=== PATIENT | male | born 1975 | race African-American/Black ===

== ENCOUNTER 2016-03-13 13:06 | Emergency (ER) | payer OTHER ==
[2016-03-13 13:18] VITALS: BP 113/78
[2016-03-13] MEDS ORDERED: Albuterol/Ipratropium NEB.SOL* Albuterol 2.5 MG/Ipratropium 0.5 MG 3 ML INH ONE (13:43)
--- NOTE | 2016-03-13 14:44 | RAD ---
INDICATION: Sarcoidosis, cough. COMPARISON: There are no prior studies available for comparison. TECHNIQUE: Dual-energy PA and lateral views of the chest were obtained. FINDINGS: Cardiac and mediastinal contours appear within normal limits. The lungs are slightly underinflated. There is diffuse prominence of the interstitial markings. No focal infiltrate or pleural effusion is seen. IMPRESSION: THERE IS DIFFUSE PROMINENCE OF THE INTERSTITIAL MARKINGS WHICH IS A NONSPECIFIC FINDING ALTHOUGH WOULD BE MOST CONSISTENT WITH CHRONIC INTERSTITIAL LUNG DISEASE AND THE PATIENT'S HISTORY OF SARCOIDOSIS.
--- NOTE | 2016-03-13 14:53 | UC ---
Martina Melo Matthew, [facility] on 03/13/16 at 1358 . Respiratory Complaint HPI - HPI Summary HPI Summary: Nurses Note; Hx of sarcoidosis, hasn't been taking meds X 3 weeks. Worsening SOB , worse with exertion. Had cold symptoms last week. Does not have local yet, just moved to area from [facility]. MD Note; 40 y/o male. Hx of sarcoidosis with worsening SOB. Vital signs stable, afebrile, pulse oxygen 94%, light every day smoker. The patient is from out of town. In Room Note; A 40 y/o male presents to the ED with SOB since 2 weeks ago. Associated symptoms include wheezing and intermittent productive cough. The patient denies nausea, vomiting, and diarrhea. The patients SOB worsens with exertion. He has been out of medication for sarcoid for the past 3 weeks, because the patient has been travelling and is relocating to [place]. He does not have a PCP in [place] yet. He has been on these medications since 2012. He normally uses his inhaler daily as well as prednisone. No PMHx of asthma. The patient was ill last week, which made his symptoms worse. He is currently visiting from out of town. FHx of sarcoid. - History of Current Complaint Chief Complaint: UCRespiratory Stated Complaint: RESP COMPLAINT Hx Obtained From: Patient Onset/Duration: Lasting Weeks, Still Present Timing: Constant Severity Initially: Moderate Severity Currently: Moderate Character: Cough: Productive - intermittently Aggravating Factors: Exertion Associated Signs And Symptoms: Positive: Wheezing. Negative: Fever - Allergies/Home Medications Allergies/Adverse Reactions: Allergies Allergy/AdvReac Type Severity Reaction Status Date / Time No Known Allergies Allergy Verified 03/13/16 13:18 Home Medications: Home Medications Albuterol HFA INHALER* [Ventolin HFA Inhaler*] 2 puff INH PRN 03/13/16 [History] Budesonide/Formote 160/4.5(NF) [Symbicort 160/4.5 (NF)] 2 puff INH DAILY [History Confirmed 03/13/16] FLUoxetine CAP* [Prozac CAP*] 30 mg PO DAILY 03/13/16 [History Confirmed ] Lisinopril/HCTZ 1012.5(NF) [Zestoretic 11/20.5(NF)] 1 tab PO DAILY 03/13/16 [ History Confirmed 03/13/16] Omeprazole CAP* [Prilosec CAP* 20 MG] 1 tab PO DAILY 03/13/16 [History Confirmed 03/13/16] QUEtiapine TAB* [Seroquel TAB*] 200 mg PO DAILY 03/13/16 [History Confirmed 03/28] busPIRone TAB* [Buspar TAB*] 1 tab PO BID 03/13/16 [History Confirmed 03/13/16] metFORMIN* [Glucophage*] 1 tab PO BID 03/13/16 [History Confirmed 03/13/16] predniSONE TAB* [Deltasone TAB*] 30 mg PO DAILY 03/13/16 [History Confirmed 03/28] PMH/Surg Hx/FS Hx/Imm Hx - Additional Past Medical History Additional PMH: PMHx: pulmonary sarcoidosis Endocrine History Of: Reports: Diabetes - Pre-Diabetic - Surgical History Surgical History: Yes - Family History Known Family History: Negative: Cardiac Disease, Diabetes Family History: FHx of sarcoidosis - mother - Social History Alcohol Use: None Substance Use Type: None Smoking Status (MU): Light Every Day Tobacco Smoker - Immunization History Most Recent Influenza Vaccination: Review of Systems Constitutional: Negative Skin: Negative Eyes: Negative ENT: Negative Respiratory: Shortness Of Breath, Cough - productive, Other - Wheezing Cardiovascular: Negative Gastrointestinal: Negative Genitourinary: Negative Motor: Negative Neurovascular: Negative Musculoskeletal: Negative Neurological: Negative Psychological: Negative All Other Systems Reviewed And Are Negative: Yes Physical Exam Triage Information Reviewed: Yes Appearance: Well-Appearing, No Pain Distress, Well-Nourished Vital Signs: Initial Vital Signs Temp 97.6 F 03/13/16 13:10 Pulse 88 03/13/16 13:10 Resp 24 03/13/16 13:10 BP 113/78 03/13/16 13:10 Pulse Ox 94 03/13/16 13:10 Vital Signs Reviewed: Yes Eyes: Positive: Conjunctiva Clear ENT: Positive: Hearing grossly normal, Pharynx normal, TMs normal. Negative: Muffled/hoarse voice Neck: Positive: Supple, No Lymphadenopathy Respiratory: Positive: Chest non-tender, Lungs clear, No respiratory distress, Other: - Lungs are quiet on inhalation. Negative: Crackles, Rhonchi, Wheezing Cardiovascular: Positive: RRR, No Murmur Abdomen Description: Positive: Nontender, No Organomegaly Bowel Sounds: Positive: Present Musculoskeletal: Positive: Strength Intact, ROM Intact Neurological: Positive: Muscle Tone Normal Psychological: Positive: Age Appropriate Behavior UC Diagnostic Evaluation - Laboratory O2 Sat by Pulse Oximetry: 94 Re-Evaluation - Re-Evaluation First Eval Re-Evaluation Time: 14:32 Change: Improved Comment: S/P nebulization pulse oxygen was 96% Second Eval Re-Evaluation Time: 14:43 Change: Improved Comment: He feels more comfortable. He has greater airflow and easy of respirations. I ordered a spacer for the patient to accompany his albuterol. Respiratory Course/Dx - Course Course Of Treatment: The patient has a Hx of pulmonary sarcoidosis and has a recent cough and SOB. No complaints of chest pain hemoptysis. Hes from out of town and has run out of medication and there are no baseline testing including XR for this patient. Hes scheduled to see his new PCP in one month. He requires renewal of his medications, which I will give him, and I will also obtain a chest XR as baseline. - Differential Dx/Diagnosis Differential Diagnosis/HQI/PQRI: Other - Pneumonia vs sarcoid Provider Diagnoses: Pulmonary sarcoid with SOB - Physician Notification/Consults Discussed Patient Care With: [facility] - requested that metformin total number be increased to 120 and buspar to 80 Discharge - Discharge Plan Condition: Stable Disposition: HOME Prescriptions: Albuterol HFA INHALER* [Ventolin HFA Inhaler*] 1 - 2 puff INH Q4H PRN #1 mdi PRN Reason: Shortness Of Breath Budesonide/Formote 160/4.5(NF) [Symbicort 160/4.5 (NF)] 2 puff INH DAILY #1 mdi MDD 2 puffs a day FLUoxetine CAP* [Prozac CAP*] 10 mg PO DAILY #40 cap MDD 1 FLUoxetine CAP* [Prozac CAP*] 20 mg PO DAILY #40 cap MDD 1 DAILY Lisinopril/HCTZ 10.5(NF) [Zestoretic 10.5(NF)] 1 tab PO DAILY #60 tab MDD 1 Metformin HCl [Glucophage] 500 mg PO BID #60 tab MDD 2 PER DAY Omeprazole CAP* [Prilosec CAP* 20 MG] 20 mg PO DAILY #60 cap. MDD ONE A DAY Spacer/Aerosol-Holding Chamber [Aerochamber Mv] 1 mis XX Q6HR #1 mis busPIRone TAB* [Buspar TAB*] 15 mg PO BID #40 tab MDD TWICE A DAY predniSONE TAB* [Deltasone TAB*] 30 mg PO DAILY #60 tab Patient Education Materials: Sarcoidosis (ED) Referrals: No Primary Care Phys,NOPCP [Primary Care Provider] - Additional Instructions: WE DISCUSSED: Your respiratory condition is related to your sarcoidosis. 1. I have renewed your prescriptions until you see your doctor next month. I have a chest x ray as baseline for your new physician. 2. GO TO ED FOR CONTINUING OR INCREASING SHORTNESS OF BREATH. 3. BEGIN inhalers TODAY. 4.I will be here in 2 days if you need to talk about any questions or concerns. Diagnostics - Vital Signs Vital Signs Temp Pulse Resp BP Pulse Ox 03/13/16 14:33 96 03/13/16 13:10 97.6 F 88 24 113/78 94 - Laboratory Lab Statement: Any lab studies that have been ordered have been reviewed, and results considered in the medical decision making process. - Radiology CXR Xray Interpretation: Positive (See Comments) - THERE IS DIFFUSE PROMINENCE OF THE INTERSTITIAL MARKINGS WHICH IS A NONSPECIFIC FINDING ALTHOUGH WOULD BE MOST CONSISTENT WITH CHRONIC INTERSTITIAL LUNG DISEASE AND THE PATIENT'S HISTORY OF SARCOIDOSIS. Radiology Interpretation Completed By: Radiologist The documentation as recorded by the Martina valdovinos Matthew accurately reflects the service I personally performed and the decisions made by me, Mervin Morelos MD.
== END 2016-03-13 15:08 | disposition home or self-care (01) ==
LOC: UCEAST 13:06
DX: D86.0 Sarcoidosis of lung (principal); R06.02 Shortness of breath; F17.210 Nicotine dependence, cigarettes, uncomplicated
CPT/HCPCS: 71020; 99202; A9270-GY; G0463

== ENCOUNTER 2016-11-06 16:58 | Emergency (ER) | payer MEDICAID ==
--- NOTE | 2016-11-06 17:10 | UC ---
Respiratory Complaint HPI - HPI Summary HPI Summary: 40 YEAR OLD MALE WITH A HISTORY OF SARCOIDOSIS PRESENTS FOR A BREATHING TREATMENT. - History of Current Complaint Stated Complaint: SOB Time Seen by Provider: 11/06/16 17:08 Hx Obtained From: Patient Onset/Duration: Sudden Onset Severity Initially: Moderate Severity Currently: Moderate Pain Scale Used: 0-10 Numeric - 0 Character: Cough: Nonproductive - Allergies/Home Medications Allergies/Adverse Reactions: Allergies Allergy/AdvReac Type Severity Reaction Status Date / Time No Known Allergies Allergy Verified 11/06/16 17:16 PMH/Surg Hx/FS Hx/Imm Hx Previously Healthy: Yes - Surgical History Surgical History: Yes - Family History Known Family History: Negative: Cardiac Disease, Diabetes Family History: FHx of sarcoidosis - mother - Social History Alcohol Use: None Substance Use Type: None Smoking Status (MU): Light Every Day Tobacco Smoker - Immunization History Most Recent Influenza Vaccination: 2014/2015 Review of Systems Constitutional: Negative Skin: Negative Eyes: Negative ENT: Negative Respiratory: Shortness Of Breath, Cough Cardiovascular: Negative Gastrointestinal: Negative Genitourinary: Negative Motor: Negative Neurovascular: Negative Musculoskeletal: Negative Neurological: Negative Psychological: Negative All Other Systems Reviewed And Are Negative: Yes Physical Exam Triage Information Reviewed: Yes Vital Signs Reviewed: Yes Eye Exam: Normal ENT Exam: Normal Dental Exam: Normal Neck exam: Normal Neck: Positive: 1 Respiratory: Positive: No respiratory distress, Wheezing Cardiovascular Exam: Normal Abdominal Exam: Normal Musculoskeletal Exam: Normal Neurological Exam: Normal Psychological Exam: Normal Skin Exam: Normal Respiratory Course/Dx - Differential Dx/Diagnosis Provider Diagnoses: WHEZZING. SOB Discharge - Discharge Plan Condition: Stable Disposition: HOME Patient Education Materials: Sarcoidosis (ED) Referrals: Curtis Murrieta DO [Primary Care Provider] -
[2016-11-06] MEDS ORDERED: predniSONE TAB* 10 MG PO ONE (17:11)
[2016-11-06] MEDS ORDERED: Albuterol 2.5 MG/3 ML NEB.SOL* (0.083%) INH ONE (17:11)
[2016-11-06 17:16] VITALS: BP 144/86
== END 2016-11-06 17:39 | disposition home or self-care (01) ==
LOC: UCEAST 16:58
DX: R06.02 Shortness of breath (principal); R06.2 Wheezing; F17.210 Nicotine dependence, cigarettes, uncomplicated; Z87.09 Personal history of other diseases of the respiratory system
CPT/HCPCS: 93005; 99212; G0463; J7512

== ENCOUNTER 2017-10-05 10:25 | Emergency (ER) | payer MEDICAID ==
[2017-10-05 10:42] VITALS: BP 113/73
[2017-10-05] MEDS ORDERED: Ibuprofen TAB* 400 MG PO ONE (11:01)
--- NOTE | 2017-10-05 11:02 | UC ---
Throat Pain/Nasal Mani HPI - HPI Summary HPI Summary: 41 y/o male presents to the urgent care c/o sore throat since yesterday. Pain w / swallowing is 8/10 specially w/ eating or drinking. Pt has taking Bendaryl to alleviate symptoms. Pt denies cough, nasal congestion, URI symptoms, SOB, chest pain, abdominal pain, N/V/D. - History of Current Complaint Chief Complaint: UCGeneralIllness Stated Complaint: SORE THROAT Time Seen by Provider: 10/05/17 10:53 Hx Obtained From: Patient Onset/Duration: Gradual Onset, Lasting Days - 1 day, Still Present, Worse Since - today Severity: Moderate Pain Intensity: 8 Pain Scale Used: 0-10 Numeric Cough: None Associated Signs & Symptoms: Positive: Dysphagia. Negative: Wheezing, Sinus Discomfort, Nasal Discharge, Fever - Epiglottits Risk Factors Epiglottis Risk Factors: Negative - Allergies/Home Medications Allergies/Adverse Reactions: Allergies Allergy/AdvReac Type Severity Reaction Status Date / Time No Known Allergies Allergy Verified 10/05/17 10:35 Home Medications: Home Medications Budesonide/Formote 160/4.5(NF) [Symbicort 160/4.5 (NF)] 2 puff INH BID MDD 2 puffs a day 10/05/17 [History Confirmed 10/05/17] Omeprazole CAP* [Prilosec CAP* 20 MG] 40 mg PO DAILY MDD ONE A DAY 10/05/17 [ History Confirmed 10/05/17] PMH/Surg Hx/FS Hx/Imm Hx Previously Healthy: Yes Endocrine History: Diabetes - PRE-DM type II Cardiovascular History: Hypertension Other Respiratory History: Sarcoidosis GI/ History: Gastroesophageal Reflux - Surgical History Surgical History: None - Family History Known Family History: Positive: Cardiac Disease - CHF Negative: Diabetes Family History: FHx of sarcoidosis - mother - Social History Occupation: Unemployed Lives: With Family Alcohol Use: None Substance Use Type: None Smoking Status (MU): Current Every Day Smoker Type: Cigarettes Amount Used/How Often: 1/2 ppd Length of Time of Smoking/Using Tobacco: since age 14 Have You Smoked in the Last Year: Yes - Immunization History Most Recent Influenza Vaccination: 2014/2015 Review of Systems Constitutional: Negative Skin: Negative Eyes: Negative ENT: Sore Throat Respiratory: Negative Cardiovascular: Negative Gastrointestinal: Negative Genitourinary: Negative Motor: Negative Neurovascular: Negative Musculoskeletal: Negative Neurological: Negative Psychological: Negative Is Patient Immunocompromised?: No All Other Systems Reviewed And Are Negative: Yes Physical Exam - Summary Physical Exam Summary: VITAL SIGNS: Reviewed. GENERAL: Patient is a well developed and nourished male who is sitting comfortable in the examining table. Patient is not in any acute respiratory distress. HEAD AND FACE: No signs of trauma. No ecchymosis, hematomas or skull depressions. No sinus tenderness. EYES: PERRLA, EOMI x 2, No injected conjunctiva, no nystagmus. No photophobia. EARS: Hearing grossly intact. Ear canals and tympanic membranes are within normal limits. MOUTH: Positive pharynx with erythema, no exudates, no palatal petechiae. B/L tonsillar enlargement with no exudate. Uvula in midline. NECK: Supple, trachea is midline, Positive anterior cervical lymphadenopathy, no JVD, no carotid bruit, no c-spine tenderness, neck with full ROM. No meningeal signs, no Kernig's or brudzinskis signs. CHEST: Symmetric, no tenderness at palpation LUNGS: Clear to auscultation bilaterally. No wheezing or crackles. CVS: Regular rate and rhythm, S1 and S2 present, no murmurs or gallops appreciated. ABDOMEN: Soft, non-tender. No signs of distention. No rebound no guarding, and no masses palpated. Bowel sounds are normal. EXTREMITIES: FROM in all major joints, no edema, no cyanosis or clubbing. NEURO: Alert and oriented x 3. No acute neurological deficits. Speech is normal and follows commands. SKIN: Dry and warm Triage Information Reviewed: Yes Vital Signs: Initial Vital Signs Temp 98.2 F 10/05/17 10:35 Pulse 88 10/05/17 10:35 Resp 16 10/05/17 10:35 BP 113/73 10/05/17 10:35 Pulse Ox 94 10/05/17 10:35 Throat Pain/Nasal Course/Dx - Course Course Of Treatment: 41 y/o male presents to the urgent care c/o sore throat since yesterday. Pain w/ swallowing is 8/10 specially w/ eating or drinking. Pt has taking Bendaryl to alleviate symptoms. Pt denies cough, nasal congestion, URI symptoms, SOB, chest pain, abdominal pain, N/V/D. Hx obtained. Pt w/ pharyngitis on examination. Rapid strep ordered, result: negative. Viral pharyngitis.Pt Rx ibuprofen PO to alleviates symptoms of pain and swelling. Advised on hand washing to avoid spreading. Pt advised to rest, eat well and avoid strenuous exercise. If symptoms do not improve or worsen advised to return to the urgent care or f/u with his PCP in 3 days for further evaluation and treatment. Pt understood and agreed - Differential Dx/Diagnosis Differential Diagnosis/HQI/PQRI: Influenza, Laryngitis, Mononucleosis, Pharyngitis, Tonsillitis, URI Provider Diagnoses: 1- Viral pharyngitis Discharge - Sign-Out/Discharge Documenting (check all that apply): Patient Departure All imaging exams completed and their final reports reviewed: No Studies - Discharge Plan Condition: Stable Disposition: HOME Patient Education Materials: Pharyngitis (ED) Referrals: Curtis Murrieta DO [Primary Care Provider] - 3 Days Additional Instructions: 1-Please continue taking ibuprofen PO q6-8hrs prn as instructed after meals to alleviate pain and swelling. Increase fluid intake, eat well, rest and avoid strenuous exercise 2-If symptoms do not improve or worsen please return to the urgent care or f/u with your PCP 3 days for further evaluation and treatment. - Billing Disposition and Condition Condition: STABLE Disposition: Home
== END 2017-10-05 11:35 | disposition home or self-care (01) ==
LOC: UCEAST 10:25
DX: J02.8 Acute pharyngitis due to other specified organisms (principal); B97.89 Other viral agents as the cause of diseases classified elsewhere; K21.9 Gastro-esophageal reflux disease without esophagitis; I10 Essential (primary) hypertension; Z79.899 Other long term (current) drug therapy; F17.210 Nicotine dependence, cigarettes, uncomplicated
CPT/HCPCS: 87651; 99212; A9270-GY; G0463

== ENCOUNTER 2018-02-04 10:56 | Emergency (ER) | payer MEDICAID ==
[2018-02-04 11:03] VITALS: BP 122/74
--- NOTE | 2018-02-04 11:12 | UC ---
Skin Complaint HPI - HPI Summary HPI Summary: 42 yo black male presents with upper lip swelling since last night. He said that last night he noticed mild swelling to his upper lip and took a benadryl. This morning upon waking he noticed it was significantly more swollen. He is not having any difficulty breathing, throat swelling, or other facial swelling. Denies recent illness or new foods/drinks/meds. He does take a daily lisinopril/ HCTZ and has for many years. - History of Current Complaint Chief Complaint: UCAllergicReaction Time Seen by Provider: 02/04/18 11:12 Stated Complaint: LIP SWELLING Hx Obtained From: Patient Onset/Duration: Sudden Onset Onset Severity: Mild Current Severity: Mild Pain Intensity: 3 Pain Scale Used: 0-10 Numeric - Allergy/Home Medications Allergies/Adverse Reactions: Allergies Allergy/AdvReac Type Severity Reaction Status Date / Time No Known Allergies Allergy Verified 02/04/18 11:03 PMH/Surg Hx/FS Hx/Imm Hx - Additional Past Medical History Additional PMH: Sarcoidosis Endocrine History: Diabetes Cardiovascular History: Hypertension Respiratory History: COPD, Asthma GI/ History: Gastroesophageal Reflux - Surgical History Surgical History: None - Family History Known Family History: Positive: Cardiac Disease - CHF Negative: Diabetes Family History: FHx of sarcoidosis - mother - Social History Lives: With Family Alcohol Use: None Substance Use Type: None Smoking Status (MU): Current Every Day Smoker Type: Cigarettes Amount Used/How Often: 1/2 ppd Length of Time of Smoking/Using Tobacco: since age 14 Have You Smoked in the Last Year: Yes - Immunization History Most Recent Influenza Vaccination: 2014/2015 Review of Systems All Other Systems Reviewed And Are Negative: Yes Constitutional: Positive: Negative Skin: Positive: Other - Upper lip edema Eyes: Positive: Negative ENT: Positive: Negative Respiratory: Positive: Negative Cardiovascular: Positive: Negative Gastrointestinal: Positive: Negative Neurovascular: Positive: Negative Neurological: Positive: Negative Psychological: Positive: Negative Physical Exam - Summary Physical Exam Summary: GENERAL: NAD. WDWN. No pain distress. SKIN: Upper lip with moderate edema. No abscess, erythema, or discharge. No rashes, sores, lesions, or open wounds. HEENT: Head: AT/NC. No facial edema other than noted above. Eyes: EOM intact. Conjunctiva clear without inflammation or discharge. Throat: Posterior oropharynx patent and without edema. NECK: Supple. Nontender. No lymphadenopathy. CHEST: CTAB. No r/r/w. No accessory muscle use. Breathing comfortably and in no distress. CV: RRR. Pulses intact. Cap refill <2seconds NEURO: Alert. PSYCH: Age appropriate behavior. Triage Information Reviewed: Yes Vital Signs: Initial Vital Signs Temp 98.3 F 02/04/18 10:59 Pulse 97 02/04/18 10:59 Resp 16 02/04/18 10:59 BP 122/74 02/04/18 10:59 Pulse Ox 100 02/04/18 10:59 Vital Signs Reviewed: Yes Dental: Negative: Percussion Tenderness @, Gross Decay/Caries @, Dental Fracture @, Abscess @, Cellulitis @, Bleeding Course/Dx - Course Course Of Treatment: This edema could be related to his lisinopril use. I will have him stop his lisinopril and increased his prednisone to 60mg for 3 days then 40mg for 3 days and then resume his usual daily 20mg. Advised to call his PCP and schedule a f/u tomorrow for recheck and to discuss his lisinopril. Advised to go to the ED if symptoms worsen. Pt voiced understanding. - Diagnoses Provider Diagnosis: Swollen upper lip Discharge - Sign-Out/Discharge Documenting (check all that apply): Patient Departure All imaging exams completed and their final reports reviewed: No Studies - Discharge Plan Condition: Stable Disposition: HOME Prescriptions: predniSONE TAB* [Deltasone 20 MG TAB*] 40 mg PO DAILY #15 tab Referrals: Curtis Murrieta DO [Primary Care Provider] - 1 Day Additional Instructions: If you develop a fever, shortness of breath, chest pain, new or worsening symptoms - please call your PCP or go to the ED. I believe you lip swelling is due to your LISINOPRIL - please stop taking this and call your Primary doctor to follow up in 1-2 days Take the prednisone 60mg for 3 days and then 40mg for 3 days and then return to your usual 20mg daily. If the swelling gets worse or if your develop any shortness of breath or difficulty breathing - please go to the ER - Billing Disposition and Condition Condition: STABLE Disposition: Home - Attestation Statements Provider Attestation: I was available for consult. This patient was seen by the LOW. The patient was not presented to, seen by, or examined by me. -Kell
== END 2018-02-04 11:28 | disposition home or self-care (01) ==
LOC: UCEAST 10:56
DX: R22.0 Localized swelling, mass and lump, head (principal); E11.9 Type 2 diabetes mellitus without complications; I10 Essential (primary) hypertension; F17.210 Nicotine dependence, cigarettes, uncomplicated
CPT/HCPCS: 99212; G0463

== ENCOUNTER 2018-09-06 10:42 | Emergency (ER) | payer MEDICAID ==
[2018-09-06 10:56] VITALS: BP 117/71
--- NOTE | 2018-09-06 11:05 | UC ---
Respiratory Complaint HPI - HPI Summary HPI Summary: 42 yo male with pulmonary sacroidosis presents with 4-5 day hx of worsening dysnea and cough has been on daily steroids since 2013 currently on 20 mg /day no fever coughs to the point of gagging trying to quit smoking - History of Current Complaint Chief Complaint: UCRespiratory Stated Complaint: BREATHING ISSUES Time Seen by Provider: 09/06/18 11:04 Hx Obtained From: Patient Onset/Duration: Gradual Onset Timing: Constant Severity Currently: Moderate Pain Intensity: 9 - chronic "total body pain" Pain Scale Used: 0-10 Numeric Character: Cough: Nonproductive Aggravating Factors: Nothing Alleviating Factors: Bronchodilator Associated Signs And Symptoms: Positive: Wheezing - Allergies/Home Medications Allergies/Adverse Reactions: Allergies Allergy/AdvReac Type Severity Reaction Status Date / Time lisinopril Allergy throat Verified 09/06/18 10:57 swells Home Medications: Home Medications Albuterol Sulfate 1 unit INH ONCE PRN 09/06/18 [History Confirmed 09/06/18] Atorvastatin* [Lipitor 20 MG*] 1 tab PO DAILY 09/06/18 [History Confirmed ] Ibuprofen 800 mg PO TID PRN 09/06/18 [History Confirmed 09/06/18] Lidocaine 1 applic TOPICAL 09/06/18 [History] Magnesium Oxide 2 tab PO QPM 09/06/18 [History Confirmed 09/06/18] NIFEdipine [Nifedipine ER] 1 tab PO DAILY 09/06/18 [History Confirmed 09/06/18] Oxybutynin [Oxytrol] 09/06/18 [History] Varenicline Tartrate [Chantix] 1 tab PO DAILY 09/06/18 [History Confirmed ] levETIRAcetam [Keppra] 1 tab PO DAILY 09/06/18 [History Confirmed 09/06/18] PMH/Surg Hx/FS Hx/Imm Hx Previously Healthy: Yes Respiratory History: COPD, Asthma, Bronchitis, Pneumonia, Other Other Respiratory History: pulmonary sacroid - Surgical History Surgical History: None - Family History Known Family History: Positive: Cardiac Disease - CHF Negative: Diabetes Family History: FHx of sarcoidosis - mother - Social History Alcohol Use: None Substance Use Type: Marijuana Smoking Status (MU): Heavy Every Day Tobacco Smoker Type: Cigarettes Amount Used/How Often: 1/2 ppd Length of Time of Smoking/Using Tobacco: since age 14 Have You Smoked in the Last Year: Yes - Immunization History Most Recent Influenza Vaccination: Review of Systems All Other Systems Reviewed And Are Negative: Yes Constitutional: Positive: Fatigue Skin: Positive: Negative Eyes: Positive: Negative ENT: Positive: Negative Respiratory: Positive: Shortness Of Breath, Cough Cardiovascular: Positive: Negative Gastrointestinal: Positive: Negative Genitourinary: Positive: Negative Motor: Positive: Negative Neurovascular: Positive: Negative Musculoskeletal: Positive: Arthralgia, Myalgia Neurological: Positive: Negative Psychological: Positive: Negative Physical Exam Triage Information Reviewed: Yes Appearance: Well-Appearing, No Pain Distress, Well-Nourished Vital Signs: Initial Vital Signs Temp 98 F 09/06/18 10:53 Pulse 110 09/06/18 10:53 Resp 18 09/06/18 10:53 BP 117/71 09/06/18 10:53 Pulse Ox 92 09/06/18 10:53 Vital Signs Reviewed: Yes Eyes: Positive: Conjunctiva Clear ENT: Positive: Normal ENT inspection. Negative: Nasal congestion, Nasal drainage, Tonsillar swelling, Tonsillar exudate, Dental tenderness, Sinus tenderness, Uvula midline Neck: Positive: Supple, Nontender, No Lymphadenopathy Respiratory: Positive: Wheezing Cardiovascular: Positive: RRR, No Murmur Musculoskeletal: Positive: Other: - slight pre tibial Neurological: Positive: Alert, Muscle Tone Normal Psychological Exam: Normal Skin Exam: Normal Diagnostics - Radiology No standard instances Radiology Interpretation Completed By: Radiologist Summary of Radiographic Findings: no interval change in fibrosis, no infiltrate Re-Evaluation - Re-Evaluation First Eval Re-Evaluation Time: 11:55 Change: Improved - lungs clear/subjective improvement Second Eval Re-Evaluation Time: 12:42 Change: Improved - no wheezes/some improvement , POx - Comment: pox 95% Respiratory Course/Dx - Differential Dx/Diagnosis Provider Diagnosis: Pulmonary sarcoidosis, Acute bronchitis with bronchospasm Discharge - Sign-Out/Discharge Documenting (check all that apply): Patient Departure All imaging exams completed and their final reports reviewed: Yes - Discharge Plan Condition: Stable Disposition: HOME Prescriptions: Amoxicillin/Clavulanate TAB* [Augmentin TAB 875*] 875 mg PO BID #14 tab Patient Education Materials: Acute Bronchitis (ED), Sarcoidosis (ED) Referrals: Curtis Murrieta DO [Primary Care Provider] - 4 Days Additional Instructions: increase your prednisone dose to 40 mg a day until seen by your MD - Billing Disposition and Condition Condition: STABLE Disposition: Home
[2018-09-06] MEDS ORDERED: Albuterol 2.5 MG/3 ML NEB.SOL* (0.083%) INH ONE ×2 (11:12→12:04)
[2018-09-06] MEDS ORDERED: predniSONE TAB* 20 MG PO ONE (11:12)
[2018-09-06] MEDS ORDERED: Ipratropium 0.5MG/2.5ML NEB* 0.5 MG/2.5 ML NEB.SOLN INH ONE (11:12)
== END 2018-09-06 12:50 | disposition home or self-care (01) ==
LOC: UCEAST 10:42
DX: D86.0 Sarcoidosis of lung (principal); J20.9 Acute bronchitis, unspecified; F17.210 Nicotine dependence, cigarettes, uncomplicated
CPT/HCPCS: 71046; 99203; G0463; J7512

== ENCOUNTER 2019-02-20 00:50 | Inpatient (IN) | payer MEDICAID ==
[2019-02-20] MEDS ORDERED: methylPREDNISolone 125 MG* 2 ML VIAL IV ONE (00:53)
[2019-02-20] MEDS ORDERED: Albuterol/Ipratropium NEB.SOL* Albuterol 2.5 MG/Ipratropium 0.5 MG 3 ML INH ONE ×2 (00:53→05:27)
--- NOTE | 2019-02-20 01:08 | ED ---
Shortness of Breath - HPI Summary HPI Summary: 43-year-old male with a significant past medical history of sarcoidosis, hypertension, hyperlipidemia, COPD presents to the emergency department today complaining of shortness of breath. Patient states the last few days he has had increased shortness of breath but woke up this morning significantly worsening symptoms. Patient states he takes 40 mg of prednisone daily, has been using his albuterol inhaler, albuterol nebulizers all day without relief. Patient states he was so short of breath he got short of breath putting his pants on. Patient denies other symptoms such as changes in vision, fever, chest pain, abdominal pain, rash. Surgical history is noncontributory. Patient is currently using accessory muscles to breathe and speak sent forward broken sentences. Patient received 1 DuoNeb treatment in the in ambulance in route to the hospital. - History of Current Complaint Chief Complaint: EDShortnessOfBreath Time Seen by Provider: 02/20/19 00:53 Hx Obtained From: Patient Onset/Duration: Gradual Onset, Lasting Days Current Severity: Severe Dyspnea At: Rest Aggravating Factors: Movement Alleviating Factors: Bronchodilators, EMS Tx, Oxygen, Upright Position Associated Signs & Symptoms: Cough (Nonproductive), Wheezing - Allergy/Home Medications Allergies/Adverse Reactions: Allergies Allergy/AdvReac Type Severity Reaction Status Date / Time lisinopril Allergy throat Verified 09/06/18 10:57 swells Home Medications: Home Medications Aclidinium Coulters [Tudorza Pressair] 1 dose INH DAILY 02/20/19 [History Confirmed 02/20/19] Omeprazole 40 mg PO DAILY 02/20/19 [History Confirmed 02/20/19] PMH/Surg Hx/FS Hx/Imm Hx Endocrine/Hematology History: Reports: Hx Diabetes - pre-diabetic Denies: Hx Thyroid Disease Cardiovascular History: Reports: Hx Hypertension Respiratory History: Reports: Hx Asthma, Hx Chronic Obstructive Pulmonary Disease (COPD), Other Respiratory Problems/Disorders - sarcoidosis GI History: Denies: Hx Ulcer - Cancer History Cancer Type, Location and Year: [facility] Infectious Disease History: No Infectious Disease History: Denies: Hx Clostridium Difficile, Hx Hepatitis, Hx Human Immunodeficiency Virus (HIV), Hx of Known/Suspected MRSA, Traveled Outside the [place] in Last 30 Days - Family History Known Family History: Positive: Cardiac Disease - CHF Negative: Diabetes Family History: FHx of sarcoidosis - mother - Social History Alcohol Use: None Substance Use Type: Reports: Marijuana Smoking Status (MU): Heavy Every Day Tobacco Smoker Type: Cigarettes Amount Used/How Often: 1/2 ppd Length of Time of Smoking/Using Tobacco: since age 14 Have You Smoked in the Last Year: Yes Review of Systems Constitutional: Negative Eyes: Negative ENT: Negative Cardiovascular: Negative Positive: Shortness Of Breath, Cough Gastrointestinal: Negative Genitourinary: Negative Musculoskeletal: Negative Skin: Negative Neurological: Negative Psychological: Normal All Other Systems Reviewed And Are Negative: Yes Physical Exam - Summary Physical Exam Summary: Patient is in mild respiratory distress upon arrival to the emergency department. The patient has signs of accessory muscle use and speaks in 5 or broken sentences. Auscultation reveals notable wheezing throughout the chest but there is no stridor or rales, rhonchi. Triage Information Reviewed: Yes Vital Signs On Initial Exam: Initial Vitals Temp Pulse Resp BP Pulse Ox 100.6 F 127 31 170/91 2 02/20/19 00:58 02/20/19 00:58 02/20/19 00:58 02/20/19 00:58 02/20/19 00:58 Vital Signs Reviewed: Yes Appearance: Positive: Well-Appearing, No Pain Distress, Well-Nourished Skin: Positive: Warm, Skin Color Reflects Adequate Perfusion Eyes: Positive: EOMI, NOAM ENT: Positive: Hearing grossly normal Respiratory/Lung Sounds: Positive: Breath Sounds Present, Wheezes Cardiovascular: Positive: Tachycardia, S1, S2 Abdomen Description: Positive: Nontender, Soft Bowel Sounds: Positive: Present Musculoskeletal: Positive: Strength/ROM Intact Neurological: Positive: Sensory/Motor Intact, Alert, Oriented to Person Place, Time, Normal Gait, Facial Symmetry, Speech Normal Psychiatric: Positive: Normal, Affect/Mood Appropriate AVPU Assessment: Alert Procedures - Sedation Patient Received Moderate/Deep Sedation with Procedure: No Diagnostics - Laboratory Result Diagrams: 02/20/19 01:04 02/20/19 01:04 Lab Statement: Any lab studies that have been ordered have been reviewed, and results considered in the medical decision making process. Course/Dx - Course Course Of Treatment: Patient was evaluated in the emergency department today for shortness of breath. Patient was seen and examined. Vitals noted, patient afebrile. EKG was done promptly which showed normal sinus rhythm at a rate of 120 bpm. Normal axis, normal intervals. No evidence of WPW or Brugada. No evidence of STEMI. Upon presentation patient had labored breathing and was given DuoNeb treatment and 125 mg of methylprednisolone. Pt improved significantly after nebulizer treatment. Chest xray shows pulmonary inflammation , but no pneumonia. Blood work returned with no leukocytosis or significant electrolyte abnormalities. Pt has mild anemia, which is chronic. Pt given 2gm of IV magnesium to improve his breathing. Pt given 1 dose of doxycycline due to high risk of penumonia. Influenza A positive. Pt tested on room air and desatureated to 84% while resting. Hospitalist, Dr. Chan was called for admission of the patient at 0226 who agreed to admit the patient for hypoxia. - Diagnoses Differential Diagnosis/HQI/PQRI: Positive: Airway Obstruction, Asthma, Bronchitis, COPD Exacerbation, Pneumonia, Pneumothorax, Other - sarcoidosis Provider Diagnoses: Shortness of breath, Influenza A, Hypoxia - Physician Notifications Discussed Care of Patient With: Lianna Chan - Admit pt for hypoxia Time Discussed With Above Provider: 02:26 Instructed by Provider To: Admit As Inpatient Discharge ED - Sign-Out/Discharge Documenting (check all that apply): Patient Departure - Discharge Plan Condition: Stable Disposition: ADMITTED TO [facility] Prescriptions: DOXYcycline CAP(*) [DOXYcycline 100MG CAP(*)] 100 mg PO BID 7 Days #14 cap Patient Education Materials: Shortness of Breath (ED) Referrals: Curtis Murrieta DO [Primary Care Provider] - - Billing Disposition and Condition Condition: STABLE Disposition: Admitted to [facility]
[2019-02-20 01:09] LABS: ABS Lymphocytes 0.5 10^3/ul (1.0-4.8); ABS Monocytes 0.7 10^3/ul (0-0.8); ABS Neutrophils 6.9 10^3/ul (1.5-7.7); Eosinophil % 0.1 %; Hematocrit 39 % (42-52); Hemoglobin 13.4 g/dL (14.0-18.0); Lymphocyte % 6.5 %; Mean Corpuscular HGB Conc 35 g/dL (31-36); Mean Corpuscular Hemoglobin 29 pg (27-31); Mean Corpuscular Volume 84 fL (80-94); Mean Platelet Volume 8.5 fL (7.4-10.4); Platelet Count 169 10^3/uL (150-450); Red Cell Distribution Width 16 % (10-15); White Blood Count 8.1 10^3/uL (3.5-10.8)
[2019-02-20 01:27] LABS: Albumin 4.1 g/dL (3.2-5.2); Albumin/Globulin Ratio 1.4 (1-3); BUN/Creatinine Ratio 9.6 (8-20); Calcium 8.9 mg/dL (8.6-10.3); EGFR African American 83.6 (>60); EGFR Non-African American 69.1 (>60); Globulin 2.9 g/dL (2-4); Magnesium 1.8 mg/dL (1.9-2.7); Potassium 3.6 mmol/L (3.5-5.0); Total Bilirubin 0.4 mg/dL (0.2-1.0)
[2019-02-20 01:28] LABS: Troponin I 0.01 ng/mL (<0.03)
[2019-02-20] MEDS ORDERED: Magnesium Sulfate 2 GM IV* 2 GM/50 ML BAG IVPB ONE (01:37)
[2019-02-20] MEDS ORDERED: Acetaminophen TAB* 325 MG PO ONE (01:54)
[2019-02-20] MEDS ORDERED: DOXYcycline CAP(*) 100 MG PO ONE (02:02)
[2019-02-20 02:13] LABS: Influenza A Molecular POSITIVE (Negative)
[2019-02-20] MEDS ORDERED: Ondansetron INJ* 2 MG/ML VIAL IV ONE (02:42)
[2019-02-20] MEDS ORDERED: Ondansetron INJ* 2 MG/ML VIAL IV PRN (02:42)
[2019-02-20] MEDS ORDERED: Metoprolol Tartrate IV* 1 MG/ML 5 ML VIAL IV ONE (03:34)
[2019-02-20] MEDS ORDERED: Lorazepam PYXIS KEY PRN ×2 (03:47→05:28)
[2019-02-20] MEDS ORDERED: NS 0.9% 1000 ML** 2,000 ML IV ONE (03:48)
[2019-02-20] MEDS ORDERED: Metoprolol Tartrate IV* 1 MG/ML 5 ML VIAL IV PRN (03:54)
[2019-02-20] MEDS ORDERED: Lorazepam PYXIS KEY ONE ×2 (03:58→05:33)
[2019-02-20] MEDS ORDERED: Albuterol/Ipratropium NEB.SOL* Albuterol 2.5 MG/Ipratropium 0.5 MG 3 ML INH SCH ×2 (04:00→18:00)
[2019-02-20] MEDS: LORazepam INJ* 2 MG/ML 1 ML VIAL IV PUSH PRN ×2 (04:11→09:58)
[2019-02-20] MEDS: cefTRIAXone(*) 1 GM in NS 0.9% 50 ML* 50 ML IVPB SCH (04:11)
[2019-02-20] MEDS ORDERED: LORazepam INJ* 2 MG/ML 1 ML VIAL IV PUSH ONE (05:28)
[2019-02-20] MEDS ORDERED: Albuterol/Ipratropium NEB.SOL* Albuterol 2.5 MG/Ipratropium 0.5 MG 3 ML ONE (05:29)
[2019-02-20] MEDS ORDERED: LORazepam INJ* 2 MG/ML 1 ML VIAL ONE (05:33)
[2019-02-20] MEDS: Oseltamivir CAP* 75 MG CAP PO SCH ×2 (05:40→14:54)
[2019-02-20] MEDS: methylPREDNISolone SOD 40 MG* 1 ML VIAL IV SCH ×3 (05:42→21:53)
[2019-02-20] MEDS: Enoxaparin(*) 40 MG/0.4 ML SYR SUBCUT SCH (05:42)
[2019-02-20 05:59] LABS: Urine Appearance Clear; Urine Bilirubin Negative (Negative); Urine Blood 1+ (Negative); Urine Color Yellow; Urine Glucose Negative (Negative); Urine Ketones Negative (Negative); Urine Nitrite Negative (Negative); Urine Protein Negative (Negative); Urine Specific Gravity 1.026 (1.010-1.030); Urine Urobilinogen Negative (Negative)
[2019-02-20 06:01] LABS: Urine Bacteria Absent (Absent); Urine Red Blood Cell 3+(>10/hpf) (Absent); Urine Squamous Epithelial Cell Present (Absent); Urine White Blood Cell Trace(0-5/hpf) (Absent)
--- NOTE | 2019-02-20 08:06 | HP ---
HISTORY AND PHYSICAL: DATE OF ADMISSION: 02/20/19 PRIMARY CARE PHYSICIAN: Dr. Curtis Murrieta. SETTER MOLDING AND COREMAKING MACHINES: Gabbi Conley, the patient's sister. CODE STATUS: Full. SOURCE OF INFORMATION: History of present illness is obtained by the patient, who is limited due to poor historian, secondary to clinical status. CHIEF COMPLAINT: Shortness of breath. HISTORY OF PRESENT ILLNESS: This is a 43-year-old male with past medical history of sarcoidosis diagnosed in 2011 via skin biopsy and COPD with past PFT showing severe obstruction, not on home oxygen, but on daily prednisone, active tobacco use, obstructive sleep apnea, noncompliant on CPAP, hypertension, prediabetes, PTSD and depression, and hyperlipidemia, who is presenting to the emergency room with shortness of breath, subjective fevers, myalgias, and runny nose for 3 days. His shortness of breath worsened to the point where he wanted to seek emergency care this evening. He otherwise was in his usual state of health. EMERGENCY ROOM COURSE: In the ER, the patient presented febrile to 101, heart rate 120 and sinus with initial blood pressure systolic of 170s with a respiratory rate of 28, who is saturating 82% and was placed on 4 L with improvement to his saturations of 90%. Over the course of his ER course, his blood pressure drifted down to systolic 100s, respiratory rate increased up into the 30s and his saturations fell needing up to 10 L of nasal cannula. His work of breathing increased and ultimately was placed on BiPAP during his ER course with significant improvement in terms of his comfort and respiratory status. Labs were drawn, which were largely unremarkable with the exception of influenza A being positive. Chest x-ray was performed, which showed diffuse interstitial lung disease and hyperinflated lungs, but no focal opacity and no retrocardiac opacity is noted. EKG was performed, which showed sinus tachycardia to the 120s. The patient was given doxycycline, methylprednisone 125, DuoNebs, placed on BiPAP, 2 L normal saline, ceftrioxone and doxycycline while in the emergency room and then admitting to the ICU for hypoxic/ hypercarbic respiratory failure by the hospitalist team. PAST MEDICAL HISTORY: Sarcoidosis diagnosed in 2011 via skin biopsy, COPD with past PFT showing severe obstruction, not on home oxygen, on daily prednisone, active tobacco use, obstructive sleep apnea, noncompliant on CPAP, hypertension , prediabetes, PTSD, depression, and hyperlipidemia. PAST SURGICAL HISTORY: Was unable to obtain secondary to the clinical status of the patient. MEDICATIONS: 1. Oxybutynin 5 mg p.o. q.h.s. 2. Tudorza Pressair 1 dose inhaled daily. 3. Albuterol inhaler 1 puff inhaled q.4 hours p.r.n. 4. Albuterol sulfate nebulizer 1 unit inhaled p.r.n. 5. Ibuprofen 800 mg p.o. t.i.d. p.r.n. 6. Lidocaine cream 1 application topically to area of the choice p.r.n. 7. Magnesium oxide 2 tablets p.o. q.p.m. 8. Metformin 1 tablet p.o. b.i.d. 9. Prednisone 40 mg p.o. daily. 10. Chantix 1 tablet p.o. daily. 11. Atorvastatin 1 tablet p.o. daily. 12. Symbicort 2 puffs inhaled b.i.d. 13. Fluoxetine 20 mg p.o. daily. 14. Keppra 250 mg p.o. daily. 15. Nifedipine 30 mg 1 tablet p.o. daily. 16. Omeprazole 40 mg p.o. daily. ALLERGIES: LISINOPRIL. FAMILY HISTORY: I did not ascertain secondary to the clinical status of the patient. SOCIAL HISTORY: The patient is disabled. He is half pack per day for 30 years and no history of alcohol and endorses marijuana use. REVIEW OF SYSTEMS: Was brief and limited given the clinical status of the patient. He has decompensation while in the emergency room, was positive for fevers, chills, malaise. HEENT is positive for runny nose, sore throat. Cardiovascular: Negative for chest pain Pulm: shortness of breath and cough. GI: Negative for nausea or vomiting. : Negative for dysuria or hematuria. Musculoskeletal: Positive for myalgias. Skin: Negative for new rashes or lesions. Neurologic: Negative for focal weakness or numbness. Psychiatric: He does endorse anxiety. Endocrine: Negative for polyuria or polydipsia. PHYSICAL EXAMINATION GENERAL APPEARANCE: This is an ill-appearing man, in respiratory distress with respiratory rate of 30. He is only able to speak short sentences and at times during my physical exam, he is nodding off. VITAL SIGNS: At the time of physical exam, blood pressure was 141/83, pulse rate 108, respiratory rate 28, oxygen saturation 90% on 5 L. This was just prior to him decompensating and needing to be placed on BiPAP. HEENT: Pupils are equal and reactive. Extraocular muscles are intact. Sclerae are anicteric. Oropharynx is with some mild erythema and posterior pharyngitis, but no other lesions. NECK: Supple with no supraclavicular or cervical lymphadenopathy. LUNGS: The patient has IE wheezes with poor air entry to bilateral lung bases and increased work of breathing with respiratory rate of 30s. ABDOMEN: Belly is soft, nontender, and nondistended with normoactive bowel sounds. MUSCULOSKELETAL: He moves all 4 limbs spontaneously. Extremities are warm and well perfused. He has no evidence of edema. NEUROLOGIC: He has no obvious focal neurologic deficits. He is alert and oriented x3, although sleepy during our exam. PSYCHIATRIC: He appears anxious. SKIN: Without rashes or lesions. DIAGNOSTIC STUDIES/LAB DATA: White blood cell count is 8.1, hemoglobin 13.4, hematocrit 39, platelets 169. Sodium 140, potassium 3.6, chloride 103, carbon dioxide 30, anion gap 7, BUN 11, creatinine 1.15, glucose 99. AST 22, ALT 22, alkaline phosphatase 63. BNP is 40. Influenza is positive for A. EKG performed shows sinus tachycardia in 120s with no active signs of ischemia and chest x-ray shows hyperinflated lungs. No cardiomegaly. No obvious acute infiltrates with findings of increased interstitial markings consistent with prior interstitial lung disease/sarcoidosis. ASSESSMENT AND PLAN: This is a 43-year-old male with past medical history of sarcoid COPD, on daily prednisone, not on oxygen, ongoing tobacco use, obstructive sleep apnea, noncompliant on CPAP, hypertension, prediabetes, PTSD, depression, who presents with hypoxic and hypercarbic respiratory failure secondary to influenza and sepsis secondary to influenza. 1. Hypoxic respiratory failure, this is secondary to flu. The team did attempt ABG x3 along with respiratory help, they were unable to obtain. He was placed on BiPAP for increased work of breathing, drowsy during the exam, most likely representing the hypoxic and hypercarbic respiratory failure. His mental status can tolerate BiPAP and he will be admitted to the ICU for closer monitoring. We will place the patient on DuoNeb, methylprednisone 40 mg q.8 hours and we will be treating him for flu as well as for COPD exacerbation with antibiotics. 2. Sepsis, he meets criteria with fever and tachycardia and tachypnea. Fluid bolus for 2 L. Lactic acid is pending. We will follow up Strep pneumo and legionella antigen. Culture data is also pending. As per above, we will treat for flu and cover with antibiotics for antiinflammatory properties of antibiotics and COPD exacerbation, so we may deescalate to doxycycline alone if the patient is stable within 24 hours. Ceftriaxone is probably unnecessary in the patient with no obvious infiltrate, no leukocytosis, and known reason for his respiratory failure. 3. COPD exacerbation. The patient is currently on BiPAP. His methylprednisone will be dosed at 40 mg q.8 hours IV with his home dose being 40 mg p.o. DuoNeb started and doxycycline is continued. We may deescalate off ceftriaxone after one dose if the patient remains stable. 4. History of sarcoid. He has no evidence of current flare, he is on chronic steroids, which puts him at risk for adrenal insufficiency as well as immunocompromised state. He was not on Bactrim prior to this admission and could be considered on discharge. 5. Hypertension. His home nifedipine will be held secondary to borderline hypertension on admission. 6. Active tobacco use. We will offer the patient nicotine replacement therapy in the form of nicotine patches, gums or lozenges. 7. PTSD. We will place the patient on p.r.n. Ativan for use of BiPAP, his home medication of fluoxetine, which will be continued. 8. DVT prophylaxis: He will be placed on Lovenox. 9. Disposition: He is stable to be admitted to the intensive care unit for initiation of new BiPAP. 10. Code status is full. Access is 2 peripheral IVs and no [place] at this time. TIME SPENT: Time spent on admission is 60 minutes with over half of that spent directly at the bedside with the patient providing direct patient care. Plan of care is discussed with the patient, he has no further questions. [id number]/CPS #: [id number] SUGEY
[2019-02-20] MEDS: Morphine INJ* 2 MG/ML 1 ML SYRINGE (TWO MG - NEW SYRINGE VERSION) IV PRN ×2 (08:49→11:30)
[2019-02-20] MEDS ORDERED: Pantoprazole TAB * 40 MG TAB PO SCH (09:00)
[2019-02-20] MEDS ORDERED: NIFEdipine ER TAB* 30 MG PO SCH (09:00)
[2019-02-20] MEDS ORDERED: Oseltamivir CAP* 75 MG CAP PO SCH (09:00)
[2019-02-20] MEDS ORDERED: levETIRAcetam TAB* 500 MG PO SCH (09:00)
[2019-02-20] MEDS ORDERED: Budesonide/Formote 160/4.5(NF) MDI INH SCH (09:00)
[2019-02-20] MEDS: DOXYcycline IV* 100 MG in NS 0.9% 250 ML* 250 ML IVPB SCH ×2 (09:57→21:53)
[2019-02-20] MEDS: Nicotine PATCH 14 MG/24 HR* PATCH TRANSDERM SCH (10:37)
[2019-02-20] MEDS ORDERED: Succinylcholine* 20 MG/ML 10 ML VIAL ONE (10:50)
[2019-02-20] MEDS ORDERED: Etomidate* 2 MG/ML 20 ML VIAL (40 MG) ONE (10:57)
[2019-02-20] MEDS ORDERED: Midazolam* 1 MG/ML 10 ML VIAL (10 MG) ONE (10:57)
[2019-02-20] MEDS ORDERED: Propofol* 100 ML ONE (11:09)
--- NOTE | 2019-02-20 11:23 | PN ---
Progress Note - Progress Note Date of Service: 02/20/19 - Intubation note Note: Procedure: Intubation Physician(s): Devon Cabrera Indication: Acute hypercapnic/hypoxic respiratory failure / inability to protect airway Sedation/Neuromuscular tim: 4 Versed, 20 Etomidate, 100 Succinyl Choline Procedure: The patient was prepared in the usual fashion, and a 7.5 endotrachial tube was placed under direct visualization, then taped at 22inches at the teeth. Exam revealed bilateral breath sounds and good chest rise without air sounds in the abdomen. End-tidal CO2 monitor was also used to confirm tracheal placement. The patient was started on mechanical ventilation, and chest x-ray was ordered to assess for endotracheal tube placement. Complications: None
--- NOTE | 2019-02-20 11:28 | PN ---
Date of Service: 02/20/19 - [facility] note Critical Care Services: Pt seen and examined at bedside. Pt presented for worsening SOB, subjective fevers. Pt was lethargic in ED. Pt noted to have positive flu. Pt with acute hypoxic respiratory failure, was placed on BiPAP overnight. Pt noted to have hypercapnic and hypoxic resp failure. Pt failed to improve overnight, was noted to be in significant resp distress with tachypnea, abd breathing and use of accessory resp muscles. Pt also with worsening mental status with concern for airway protection. Decision was made to intubate patient, was intuabted at 11:15 am. Active Medications Generic Name Dose Route Start Last Admin Trade Name Freq PRN Reason Stop Dose Admin Acetaminophen 650 mg 02/20/19 03:47 Tylenol Tab* PO Q6H PRN MILD PAIN or TEMP > 100.4 Albuterol/Ipratropium 1 neb 02/20/19 03:49 Duoneb (Albuterol 2.5 Mg/Ipratropium 0.5 Mg) INH Q6H PRN SOB/WHEEZING Atorvastatin Calcium 20 mg 02/20/19 09:00 Lipitor* PO DAILY COLE Chlorhexidine Gluconate 15 ml 02/20/19 12:00 Peridex Mouth Wash 0.12%* TOPICAL Q4H COLE Enoxaparin Sodium 40 mg 02/20/19 06:00 02/20/19 05:42 Lovenox(*) SUBCUT 40 mg Q24H COLE Administration Fluoxetine HCl 20 mg 02/20/19 09:00 Prozac Cap* PO DAILY COLE Doxycycline Hyclate 100 mg/ 250 mls @ 250 mls/hr 02/20/19 09:00 02/20/19 09: 57 Sodium Chloride IVPB 250 mls/hr Q12HR COLE Administration Ceftriaxone Sodium 1 gm/ 50 mls @ 100 mls/hr 02/20/19 04:00 02/20/19 04:11 Sodium Chloride IVPB 100 mls/hr Q24H COLE Administration Propofol 100 mls @ 3.39 mls/hr 02/20/19 12:00 Diprivan* IV .PER PROTOCOL COLE Protocol 5 MCG/KG/MIN Levetiracetam 250 mg 02/20/19 09:00 Keppra Tab* PO DAILY COLE Lorazepam 1 mg 02/20/19 03:47 02/20/19 09:58 Ativan Inj* IV PUSH 1 mg Q6H PRN Administration ANXIETY Magnesium Oxide 400 mg 02/20/19 09:00 Magox 400 Tab* PO DAILY [facility] Methylprednisolone Sodium Succinate 40 mg 02/20/19 06:00 02/20/19 05:42 Solu-Medrol 40 Mg IV 40 mg Q8HR COLE Administration Miscellaneous 1 ea 02/20/19 03:47 Ativan Pyxis Arellano N/A .ATIVAN IV ARELLANO PRN PYXIS ARELLANO Morphine Sulfate 1 mg 02/20/19 05:29 02/20/19 08:49 Morphine Inj (Syringe))* IV 1 mg Q2H PRN Administration PAIN - SEVERE Nicotine 1 patch 02/20/19 09:00 02/20/19 10:37 Nicotine Patch 14 Mg/24 Hr* TRANSDERM 1 patch DAILY [facility] Administration Ondansetron HCl 4 mg 02/20/19 02:42 Zofran Inj* IV Q6H PRN NAUSEA Oseltamivir Phosphate 75 mg 02/20/19 03:52 02/20/19 05:40 Tamiflu Cap* PO 02/24/19 09:01 75 mg BID [facility] Administration Pantoprazole Sodium 40 mg 02/20/19 09:00 Protonix Tab* PO DAILY [facility] Pharmacy Profile Note 1 note 02/20/19 21:00 Nicotine Patch Removal Note* FOLLOW UP 2099 [facility] Vital Signs: Temp Pulse Resp BP SpO2 FiO2 97.6 F 105 21 166/101 98 60 02/20/19 07:25 02/20/19 10:00 02/20/19 10:00 02/20/19 10:00 02/20/19 10:00 02/20 08:00 Physical Exam: Gen: Pt is sedated, was confused and arousable to apinful stimuli prior to intubation and sedation HEENT: ETT+ Lungs: Diminished at bases Cardiac: S1, S2+ Abdomen: Obese, BS+ Extremities: Normal ROM Neuro: Sedated, unable to perform complete neuro exam due to mental status, no focal deficits noted Skin: No rash Fluid Balance (Past 24 Hours): I= 550 O= 150 Net 400 Intake & Output 02/18/19 02/19/19 02/20/19 02/21/19 06:59 06:59 06:59 06:59 Intake Total 550 Output Total 150 175 Balance 400 -175 Weight 249 lb 1.957 oz Intake: IV Fluids 550 NS (0.9%) 500 Output: Urine 150 175 Other: Estimated Void Large # Voids 1 Labs: Laboratory Results - last 24 hr 02/20/19 02/20/19 02/20/19 01:04 01:04 01:04 WBC 8.1 RBC 4.60 Hgb 13.4 L Hct 39 L MCV 84 MCH 29 MCHC 35 RDW 16 H Plt Count 169 MPV 8.5 Neut % (Auto) 84.8 Lymph % (Auto) 6.5 [place] % (Auto) 8.1 Eos % (Auto) 0.1 Baso % (Auto) 0.5 Absolute Neuts (auto) 6.9 Absolute Lymphs (auto) 0.5 L Absolute Monos (auto) 0.7 Absolute Eos (auto) 0.0 Absolute Basos (auto) 0.0 Absolute Nucleated RBC 0.0 Nucleated RBC % 0.0 VBG pH VBG pCO2 VBG pO2 VBG HCO3 VBG O2 Saturation VBG Base Excess Sodium 140 Potassium 3.6 Chloride 103 Carbon Dioxide 30 Anion Gap 7 BUN 11 Creatinine 1.15 Est GFR ( Amer) 83.6 Est GFR (Non-Af Amer) 69.1 BUN/Creatinine Ratio 9.6 Glucose 99 Lactic Acid Calcium 8.9 Magnesium 1.8 L Total Bilirubin 0.40 AST 22 ALT 22 Alkaline Phosphatase 63 Troponin I 0.01 B-Natriuretic Peptide 40 Total Protein 7.0 Albumin 4.1 Globulin 2.9 Albumin/Globulin Ratio 1.4 Urine Color Urine Appearance Urine pH Ur Specific [place] Urine Protein Urine Ketones Urine Blood Urine Nitrate Urine Bilirubin Urine Urobilinogen Ur Leukocyte Esterase Urine WBC (Auto) Urine RBC (Auto) Ur Squamous Epith Cells Urine Bacteria Urine Glucose Influenza A (Rapid) Influenza B (Rapid) 02/20/19 02/20/19 02/20/19 01:55 04:08 05:51 WBC RBC Hgb Hct MCV MCH MCHC RDW Plt Count MPV Neut % (Auto) Lymph % (Auto) [place] % (Auto) Eos % (Auto) Baso % (Auto) Absolute Neuts (auto) Absolute Lymphs (auto) Absolute Monos (auto) Absolute Eos (auto) Absolute Basos (auto) Absolute Nucleated RBC Nucleated RBC % VBG pH VBG pCO2 VBG pO2 VBG HCO3 VBG O2 Saturation VBG Base Excess Sodium Potassium Chloride Carbon Dioxide Anion Gap BUN Creatinine Est GFR ( Amer) Est GFR (Non-Af Amer) BUN/Creatinine Ratio Glucose Lactic Acid 0.7 Calcium Magnesium Total Bilirubin AST ALT Alkaline Phosphatase Troponin I B-Natriuretic Peptide Total Protein Albumin Globulin Albumin/Globulin Ratio Urine Color Yellow Urine Appearance Clear Urine pH 5.0 Ur Specific [place] 1.026 Urine Protein Negative Urine Ketones Negative Urine Blood 1+ A Urine Nitrate Negative Urine Bilirubin Negative Urine Urobilinogen Negative Ur Leukocyte Esterase Negative Urine WBC (Auto) Trace(0-5/hpf) Urine RBC (Auto) 3+(>10/hpf) A Ur Squamous Epith Cells Present A Urine Bacteria Absent Urine Glucose Negative Influenza A (Rapid) Positive A Influenza B (Rapid) Not Reportable 02/20/19 06:19 WBC RBC Hgb Hct MCV MCH MCHC RDW Plt Count MPV Neut % (Auto) Lymph % (Auto) [place] % (Auto) Eos % (Auto) Baso % (Auto) Absolute Neuts (auto) Absolute Lymphs (auto) Absolute Monos (auto) Absolute Eos (auto) Absolute Basos (auto) Absolute Nucleated RBC Nucleated RBC % VBG pH 7.21 L VBG pCO2 78 H VBG pO2 82.0 H VBG HCO3 25.6 VBG O2 Saturation 96.9 H VBG Base Excess 1.0 Sodium Potassium Chloride Carbon Dioxide Anion Gap BUN Creatinine Est GFR ( Amer) Est GFR (Non-Af Amer) BUN/Creatinine Ratio Glucose Lactic Acid Calcium Magnesium Total Bilirubin AST ALT Alkaline Phosphatase Troponin I B-Natriuretic Peptide Total Protein Albumin Globulin Albumin/Globulin Ratio Urine Color Urine Appearance Urine pH Ur Specific [place] Urine Protein Urine Ketones Urine Blood Urine Nitrate Urine Bilirubin Urine Urobilinogen Ur Leukocyte Esterase Urine WBC (Auto) Urine RBC (Auto) Ur Squamous Epith Cells Urine Bacteria Urine Glucose Influenza A (Rapid) Influenza B (Rapid) Studies: CXR: Chronic interstitial changes, ETT in place Nutrition: Tube feeds Impression: 43 y o m with h/o Sarcoidosis with chronic interstitial changes, COPD, ALBERTINA not compliant with CPAP a/w SOB found to have acute hypoxic and hypercapnic resp failure 2/2 Influenza A infection and exacerbation of COPD 1. Acute hypoxic and hypercapnic resp failure requiring intubation 2. Influenza A positive 3. Acute COPD exacerbation 4. Sarcoidosis on chronic prednisone with chronic interstitial changes 5. ALBERTINA not compliant with CPAP 6. Anemia 7. Morbid obesity with BMI 37 Plan: 1. Neuro: Pt with AMS 2/2 acute hypercapnic reps failure. Pt sedated post intubation with propofol. Fentanyl prn for pain. Keep HOB to 30 degrees. 2. Resp: H/o COPD, sarcoidosis, ALBERTINA. Pt presented with hypoxic and hypercapnic resp failure 2/2 Influenza PNA and acute COPD exacerbation. Pt failed BiPAP and was intubated. Will adjust vent settings. Vent bundle, pulm toilet, bronchodilators. Will send sputum cx. c/w solumedrol. Will obtain ABG in hr after vent adjustment 3. CVS: Hemodynamically stable. Tachycardia+. EKG NSR, troponins WNL. c/w Lipitor 4. ID: c/w Tamiflu and Doxycycline for Influenza infection and bronchitis. Bl cx pending, sputum cx to be sent. Lactate WNL 5. Renal: Monitor UO, no electrolyte abnormalities. 6. GI: will start tube feeds. c/w PPI for GI ppx. 7. Endo: No issues 8. Musculoskeletal: Frequent turning and positioning 9. Psychosocial: Attempted to reach pt`s sister, unable to contact at this time DVT px: Lovenox Pt is full code Critical Care Time: 30 min
[2019-02-20] MEDS ORDERED: Propofol* 100 ML IV SCH (12:00)
--- NOTE | 2019-02-20 13:34 | ED ---
ED Procedures - Procedure Summary Procedure Summary: Intubation for pt done at 11:06, using 7.5 size orotracheal tube. Pt's breath sounds equal post-intubation. Ordered CXR for post-intubation study. Sedation done by Dr. Cabrera in ICU. Post-intubation XR shows: 1. Endotracheal tube 6 cm above the abril; could be advanced 1.5 cm. 2. Nasogastric tube passes to the gastric antrum. 3. Increased prominence and ill-definition of the central pulmonary vasculature concerning for pulmonary vascular congestion. 4. Prominent interstitial markings. 5. Grossly clear pleural spaces. Negative for pneumothorax. - Intubation Time of Intubation: 11:06 Intubation Method: orotracheal Tube Size (cm): 7.5 Breath Sounds after Intubation: equal Intubation Complications: no complications Post Intubation Xray: Yes Progress/Xray Impression: see summary - Attestation Statements Document Initiated by Enriqueibe: Yes Documenting Scribe: Priscila Barreto Provider For Whom Scribe is Documenting (Include Credential): Adria Osorio DO. Scribe Attestation: Priscila Melo scribed for Adria Osorio DO. on 02/20/19 at 1335. Status of Scribe Document: Ready
[2019-02-20] MEDS ORDERED: Furosemide IV* 10 MG/ML VIAL (40 MG) IV SLOW PU ONE (14:29)
[2019-02-20] MEDS ORDERED: Famotidine SUSP ORALSYR 8 MG/ML G TUBE ONE (14:30)
[2019-02-20] MEDS: FLUoxetine CAP* 20 MG PO SCH (14:53)
[2019-02-20] MEDS: Atorvastatin* 20 MG TAB PO SCH (14:53)
[2019-02-20] MEDS: Magnesium Oxide TAB* 400 MG PO SCH (14:53)
[2019-02-20] MEDS: Chlorhexidine MOUTHWASH 0.12%* 15 ML UDC TOPICAL SCH ×4 (14:53→23:24)
[2019-02-20] MEDS: levETIRAcetam IV* 250 MG in NS 0.9% 100 ML* 100 ML IVPB SCH (15:17)
[2019-02-20] MEDS: Albuterol/Ipratropium NEB.SOL* Albuterol 2.5 MG/Ipratropium 0.5 MG 3 ML INH PRN ×2 (15:40→15:41)
[2019-02-20] MEDS: Propofol* 100 ML IV SCH ×3 (16:50→23:18)
--- NOTE | 2019-02-20 18:30 | PN ---
Progress Note - Progress Note Date of Service: 02/20/19 - Procedure note Note: A-line attempted for hemodynamic monitoring, unsuccessful attempts. Pulses are felt and normal post attempts
[2019-02-20] MEDS: Albuterol/Ipratropium NEB.SOL* Albuterol 2.5 MG/Ipratropium 0.5 MG 3 ML INH SCH ×3 (19:28→23:11)
[2019-02-20] MEDS: Oseltamivir SUSP 75 MG dose* 75 MG/12.5 ML ORAL.SYRIN PO SCH (21:53)
[2019-02-20] MEDS: Nicotine Patch Removal NOTE FOLLOW UP SCH (22:04)
[2019-02-21] MEDS: Albuterol/Ipratropium NEB.SOL* Albuterol 2.5 MG/Ipratropium 0.5 MG 3 ML INH SCH ×5 (00:58→10:04)
[2019-02-21] MEDS: Propofol* 100 ML IV SCH ×6 (01:39→23:53)
[2019-02-21] MEDS: levETIRAcetam IV* 250 MG in NS 0.9% 100 ML* 100 ML IVPB SCH ×2 (02:58→15:22)
[2019-02-21] MEDS: cefTRIAXone(*) 1 GM in NS 0.9% 50 ML* 50 ML IVPB SCH (04:18)
[2019-02-21] MEDS: Chlorhexidine MOUTHWASH 0.12%* 15 ML UDC TOPICAL SCH ×6 (04:18→23:34)
[2019-02-21 05:00] LABS: ABS Lymphocytes 0.2 10^3/ul (1.0-4.8); ABS Monocytes 0.6 10^3/ul (0-0.8); ABS Neutrophils 5.5 10^3/ul (1.5-7.7); Hematocrit 35 % (42-52); Hemoglobin 11.9 g/dL (14.0-18.0); Lymphocyte % 3.3 %; Mean Corpuscular HGB Conc 34 g/dL (31-36); Mean Corpuscular Hemoglobin 29 pg (27-31); Mean Corpuscular Volume 84 fL (80-94); Mean Platelet Volume 8.4 fL (7.4-10.4); Nucleated Red Blood Cells % 0.1; Platelet Count 147 10^3/uL (150-450); Red Cell Distribution Width 16 % (10-15); White Blood Count 6.2 10^3/uL (3.5-10.8)
[2019-02-21 05:16] LABS: BUN/Creatinine Ratio 18.3 (8-20); Calcium 8.2 mg/dL (8.6-10.3); EGFR African American 83.6 (>60); EGFR Non-African American 69.1 (>60)
[2019-02-21] MEDS: Enoxaparin(*) 40 MG/0.4 ML SYR SUBCUT SCH (05:32)
[2019-02-21] MEDS: methylPREDNISolone SOD 40 MG* 1 ML VIAL IV SCH ×3 (05:32→23:34)
[2019-02-21] MEDS: DOXYcycline IV* 100 MG in NS 0.9% 250 ML* 250 ML IVPB SCH ×2 (08:45→20:07)
[2019-02-21] MEDS: Morphine INJ* 2 MG/ML 1 ML SYRINGE (TWO MG - NEW SYRINGE VERSION) IV PRN ×3 (08:54→20:30)
[2019-02-21] MEDS: Oseltamivir SUSP 75 MG dose* 75 MG/12.5 ML ORAL.SYRIN PO SCH ×2 (08:55→20:07)
[2019-02-21] MEDS: Magnesium Oxide TAB* 400 MG PO SCH (08:55)
[2019-02-21] MEDS: Famotidine SUSP ORALSYR 8 MG/ML J TUBE SCH ×2 (08:55→20:07)
[2019-02-21] MEDS: FLUoxetine CAP* 20 MG PO SCH (08:55)
[2019-02-21] MEDS: Atorvastatin* 20 MG TAB PO SCH (08:55)
[2019-02-21] MEDS ORDERED: Albuterol/Ipratropium NEB.SOL* Albuterol 2.5 MG/Ipratropium 0.5 MG 3 ML INH PRN (09:29)
[2019-02-21] MEDS: Nicotine PATCH 14 MG/24 HR* PATCH TRANSDERM SCH (09:42)
--- NOTE | 2019-02-21 11:06 | PN ---
Progress Note - Progress Note Date of Service: 02/21/19 Note: Progress Note -- Critical Care 24 hour events/significant events: -noted events; intubated yesterday for lethargy and hypercapnic resp failure -no pressors on -awakens on propofol; follows commands -on 60% fio2 on PC mode, comfortable, synchronized to vent -making urine -tmax 100.2, BP and HR stable ROS - limited due to intubation/sedation Tele: sinus tachy Vitals: Vital Signs Temp 99.5 F 02/21/19 07:15 Pulse 105 02/21/19 08:21 Resp 33 02/21/19 08:54 BP 138/91 02/21/19 07:30 Pulse Ox 100 02/21/19 08:21 Intake & Output 02/20/19 02/21/19 02/21/19 18:59 06:59 18:59 Intake Total 287 1510 Output Total 635 685 350 Balance -348 825 -350 Weight 115.9 kg Intake: IV Fluids 148 NS (0.9%) 148 IVPB 556 Keppra 225 abx 331 Medicated IV 187 406 CC - Propofol/Diprivan 187 406 Tube Feeding 400 Tube Feeding Flush Amount 100 Output: Urine 580 650 350 [place] 55 35 Other: Estimated Void Large # Voids 1 0 O2/Vent: PC 26/+35+5/60%; TV 400-500, Peak 37 Infusions: propofol 45 Medications: Acetaminophen (Tylenol Tab*) 650 mg PO Q6H PRN PRN Reason: MILD PAIN or TEMP > 100.4 Albuterol/Ipratropium (Duoneb (Albuterol 2.5 Mg/Ipratropium 0.5 Mg)) 1 neb INH Q2H PRN PRN Reason: TO IMPROVE CLINICAL CONDITION Atorvastatin Calcium (Lipitor*) 20 mg PO DAILY [facility] Last Admin: 02/21/19 08:55 Dose: 20 mg Chlorhexidine Gluconate (Peridex Mouth Wash 0.12%*) 15 ml TOPICAL Q4H [facility] Last Admin: 02/21/19 08:55 Dose: 15 ml Enoxaparin Sodium (Lovenox(*)) 40 mg SUBCUT Q24H [facility] Last Admin: 02/21/19 05:32 Dose: 40 mg Famotidine (Pepcid Susp 8mg/Ml) 20 mg J TUBE BID [facility] Last Admin: 02/21/19 08:55 Dose: 20 mg Fluoxetine HCl (Prozac Cap*) 20 mg PO DAILY [facility] Last Admin: 02/21/19 08:55 Dose: 20 mg Doxycycline Hyclate 100 mg/ (Sodium Chloride) 250 mls @ 250 mls/hr IVPB Q12HR [facility] Last Admin: 02/21/19 08:45 Dose: 250 mls/hr Ceftriaxone Sodium 1 gm/ (Sodium Chloride) 50 mls @ 100 mls/hr IVPB Q24H [facility] Last Admin: 02/21/19 04:18 Dose: 100 mls/hr Levetiracetam 250 mg/ Sodium (Chloride) 102.5 mls @ 410 mls/hr IVPB Q12H [facility] Last Admin: 02/21/19 02:58 Dose: 410 mls/hr Propofol (Diprivan*) 100 mls @ 13.56 mls/hr IV .PER PROTOCOL [facility]; Protocol Last Admin: 02/21/19 07:14 Dose: 33.9 mls/hr Lorazepam (Ativan Inj*) 1 mg IV PUSH Q6H PRN PRN Reason: ANXIETY Last Admin: 02/20/19 09:58 Dose: 1 mg Magnesium Oxide (Magox 400 Tab*) 400 mg PO DAILY [facility] Last Admin: 02/21/19 08:55 Dose: 400 mg Methylprednisolone Sodium Succinate (Solu-Medrol 40 Mg) 40 mg IV Q8HR [facility] Last Admin: 02/21/19 05:32 Dose: 40 mg Miscellaneous (Ativan Pyxis [place]) 1 ea N/A .ATIVAN IV [place] PRN PRN Reason: PYXIS [place] Morphine Sulfate (Morphine Inj (Syringe))*) 1 mg IV Q2H PRN PRN Reason: PAIN - SEVERE Last Admin: 02/21/19 08:54 Dose: 1 mg Nicotine (Nicotine Patch 14 Mg/24 Hr*) 1 patch TRANSDERM DAILY [facility] Last Admin: 02/20/19 10:37 Dose: 1 patch Ondansetron HCl (Zofran Inj*) 4 mg IV Q6H PRN PRN Reason: NAUSEA Oseltamivir Phosphate (Tamiflu Susp 75 Mg Dose*) 75 mg PO BID [facility] Last Admin: 02/21/19 08:55 Dose: 75 mg Pharmacy Profile Note (Nicotine Patch Removal Note*) 1 note FOLLOW UP 2100 [facility] Last Admin: 02/20/19 22:04 Dose: 1 note Physical Exam: Constitutional: intubated, sedated, no distress, no diaphoresis Head: normocephalic, atraumatic Eyes: no pallor, no icterus ENT: moist mucous membranes Neck: soft, supple, no jvd CVS: tachy+, regular, no murmur Chest/Resp: bilateral air entry but distant breath sounds+, no rhales, no wheeze , no rhonchi, no acc muscle use Abdomen/GI: soft, nontender, nondistended, BS+ Ext/Msk: warm, pulses+, no edema Skin: intact, warm Neuro: sedated, awakens, moves ext/follows commands, moving all extremities Psych: unable to assess due to sedation/intubation Labs: Laboratory Results - last 24 hr 02/20/19 02/20/19 02/21/19 15:27 17:38 04:47 WBC RBC Hgb Hct MCV MCH MCHC RDW Plt Count MPV Neut % (Auto) Lymph % (Auto) [place] % (Auto) Eos % (Auto) Baso % (Auto) Absolute Neuts (auto) Absolute Lymphs (auto) Absolute Monos (auto) Absolute Eos (auto) Absolute Basos (auto) Absolute Nucleated RBC Nucleated RBC % Patient Temperature Not Reportable Not Reportable ABG pH 7.13 L* 7.32 L ABG pH (Temp Correct) Not Reportable Not Reportable ABG pCO2 89 H* 53 H ABG pCO2 (Temp Corrct Not Reportable Not Reportable ABG pO2 150 H 94 ABG pO2 (Temp Correct Not Reportable Not Reportable ABG HCO3 23.4 25.1 ABG O2 Saturation 99.6 H 98.6 H ABG Base Excess -2.0 0.3 Respiration Rate Not Reportable Not Reportable O2 Delivery Device vent Ventilator Type Not Reportable Not Reportable Vent Mode Not Reportable Not Reportable FiO2 85 60 Inspiratory Time Not Reportable Not Reportable PEEP Not Reportable Not Reportable Pressure Support Not Reportable Not Reportable Pressure Control Not Reportable Not Reportable EPAP Not Reportable Not Reportable IPAP Not Reportable Not Reportable BiPAP Not Reportable Not Reportable Sodium 136 Potassium 4.0 Chloride 101 Carbon Dioxide 31 Anion Gap 4 BUN 21 Creatinine 1.15 Est GFR ( Amer) 83.6 Est GFR (Non-Af Amer) 69.1 BUN/Creatinine Ratio 18.3 Glucose 142 H Calcium 8.2 L 02/21/19 04:47 WBC 6.2 RBC 4.10 L Hgb 11.9 L Hct 35 L MCV 84 MCH 29 MCHC 34 RDW 16 H Plt Count 147 L MPV 8.4 Neut % (Auto) 87.4 Lymph % (Auto) 3.3 [place] % (Auto) 9.1 Eos % (Auto) 0.0 Baso % (Auto) 0.2 Absolute Neuts (auto) 5.5 Absolute Lymphs (auto) 0.2 L Absolute Monos (auto) 0.6 Absolute Eos (auto) 0.0 Absolute Basos (auto) 0.0 Absolute Nucleated RBC 0.0 Nucleated RBC % 0.1 Patient Temperature ABG pH ABG pH (Temp Correct) ABG pCO2 ABG pCO2 (Temp Corrct ABG pO2 ABG pO2 (Temp Correct ABG HCO3 ABG O2 Saturation ABG Base Excess Respiration Rate O2 Delivery Device Ventilator Type Vent Mode FiO2 Inspiratory Time PEEP Pressure Support Pressure Control EPAP IPAP BiPAP Sodium Potassium Chloride Carbon Dioxide Anion Gap BUN Creatinine Est GFR ( Amer) Est GFR (Non-Af Amer) BUN/Creatinine Ratio Glucose Calcium Imaging: cxr 02/20 - ett above abril, bilateral scattered infiltrates, likley congestion Assessment: 43y M w/pmhx of Severe COPD (on daily prednisone), ALBERTINA ( noncompliant with CPAP), Sarcoidosis, active tobacco use, HTN, Pred-diabetes, HLD, PTSD, depression, seizure disorder?; admitted on 02/20 after presenting with respiratory distress and hypoxia progressing to lethargy/acute hypercapnia requiring intubation. He was found to have influenza A infection and diffuse wheezing consistent with acute COPD exacerbation. He is on Tamiflu and Ceftriaxone/doxy for treatment. 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 Plan: Neuro- -sedated, maintain low dose propofol; target rass -1 to -2 -encephalopathy resolved, likely was from hypercapnea -daily sedation holiday -cont fluoxetine for depression -cont keppra for seizure? -Delirium prec; avoid BDZ CVS- -BP and HR stable -not on IVF; making urine; appears euvolemic -hold diuretics for now -Maintain MAP>65 Resp- -Intubated for acute copd exacc; on PC 60% , peep 5, rate 26, breathing at set rate -cxr 02/20 reviewed -ABG 02/20 reviewed; improved CO2; check abg today -dec solumedrol to 40mg iv q12h ; will eventually maintain back to prednisone for COPD/Sarcoidosis -IV abx for possible CAP/influenza -no sig secretions noted from ETT, no further wheezing appreciated -Wean Fio2 to keep sat>92% -Bronchodilators PRN q4h, Aspiration prec, Pulmonary Toilet -VAP bundle ID- tmax 100.2, wbc normal -Sputum 02/20 with neutrophils and gram+; still pending ID -Influenza A+ infection 02/20 -cont ctx (day#2) and doxy (day#2) for CAP coverage -cont tamiflu 75mg po bid (day 2 of 5) GI- -NGT+; on glucerna TF; tolerating -GI prophylaxis - h2b Renal- -Cr normal; K okay, no acidosis; making urine -strict I/O, replete to keep K>4, Mg>2 -dyer as indicated Heme- -hg stable, plt stable, no bleeding noted Endo-Maintain BG<200, insulin protocol as needed; check hga1c tomorrow Musculsk- pressure ulcer prophylaxis. Bedrest. Wounds- none Nutrition- glucerna TF DVT prophylaxis: scd, lovenox daily GI prophylaxis: h2b Central Line: no Arterial Line: no Dyer Cathetor: yes Disposition: Patient requires Critical Care/ICU for respiratory failure, intubated, acute copd exaccerbation Patient clinical status: guarded, critical Code Status: full code Total Critical Care time is 60 minutes, excluding procedures/teaching Daryl Weber MD Advanced Practice Nurse Psychotherapist (Electronically Signed)
[2019-02-21] MEDS: Albuterol/Ipratropium NEB.SOL* Albuterol 2.5 MG/Ipratropium 0.5 MG 3 ML INH PRN ×2 (19:33→23:53)
[2019-02-21] MEDS: Nicotine Patch Removal NOTE FOLLOW UP SCH (20:07)
[2019-02-22] MEDS: Propofol* 100 ML IV SCH ×5 (03:01→22:55)
[2019-02-22] MEDS: levETIRAcetam IV* 250 MG in NS 0.9% 100 ML* 100 ML IVPB SCH ×2 (03:45→15:57)
[2019-02-22] MEDS: Chlorhexidine MOUTHWASH 0.12%* 15 ML UDC TOPICAL SCH ×5 (03:48→21:26)
[2019-02-22] MEDS: cefTRIAXone(*) 1 GM in NS 0.9% 50 ML* 50 ML IVPB SCH (04:04)
[2019-02-22] MEDS: Albuterol/Ipratropium NEB.SOL* Albuterol 2.5 MG/Ipratropium 0.5 MG 3 ML INH PRN ×2 (04:13→09:03)
[2019-02-22 05:01] LABS: Hematocrit 37 % (42-52); Hemoglobin 12.5 g/dL (14.0-18.0); Mean Corpuscular HGB Conc 33 g/dL (31-36); Mean Corpuscular Hemoglobin 29 pg (27-31); Mean Corpuscular Volume 87 fL (80-94); Platelet Count 137 10^3/uL (150-450); Red Cell Distribution Width 16 % (10-15); White Blood Count 7.6 10^3/uL (3.5-10.8)
[2019-02-22 05:17] LABS: Calcium 8.7 mg/dL (8.6-10.3); Magnesium 2.4 mg/dL (1.9-2.7); Potassium 4.6 mmol/L (3.5-5.0)
[2019-02-22 05:23] LABS: BUN/Creatinine Ratio 20.6 (8-20); EGFR Non-African American 79.3 (>60); Phosphorus 4.2 mg/dL (2.5-5.0)
[2019-02-22] MEDS: Enoxaparin(*) 40 MG/0.4 ML SYR SUBCUT SCH (06:09)
[2019-02-22] MEDS: FLUoxetine CAP* 20 MG PO SCH (08:01)
[2019-02-22] MEDS: Nicotine PATCH 14 MG/24 HR* PATCH TRANSDERM SCH (08:01)
[2019-02-22] MEDS: Magnesium Oxide TAB* 400 MG PO SCH (08:01)
[2019-02-22] MEDS: Oseltamivir SUSP 75 MG dose* 75 MG/12.5 ML ORAL.SYRIN PO SCH ×2 (08:01→21:27)
[2019-02-22] MEDS: Famotidine SUSP ORALSYR 8 MG/ML J TUBE SCH ×2 (08:01→21:27)
[2019-02-22] MEDS: Atorvastatin* 20 MG TAB PO SCH (08:01)
[2019-02-22] MEDS: DOXYcycline IV* 100 MG in NS 0.9% 250 ML* 250 ML IVPB SCH ×2 (08:39→21:27)
[2019-02-22] MEDS: Morphine INJ* 2 MG/ML 1 ML SYRINGE (TWO MG - NEW SYRINGE VERSION) IV PRN (09:24)
[2019-02-22] MEDS ORDERED: Furosemide IV* 10 MG/ML 2 ML VIAL (20 MG) IV ONE (09:32)
--- NOTE | 2019-02-22 09:49 | PN ---
Progress Note - Progress Note Date of Service: 02/22/19 Note: Progress Note -- Critical Care 24 hour events/significant events: -no sig events overnight; yesterday changed vent settings, no cpap was done -this morning , awakens, follows commands, decrease propofol -afebrile, BP and HR stable -mild bloody secretions suctioned from ett this AM -changed PCV to AC mode -minimla secretions being suctioned from ett -CPAP trial 15/5, then 10/5 on 35% attempted but after 15min he became tachypnic , end-tidals increasing, no wheeze, resp distress+, changed back to AC mode ROS - limited due to intubation/sedation Tele: NSR Vitals: Vital Signs Temp 97.8 F 02/22/19 07:28 Pulse 87 02/22/19 08:00 Resp 28 02/22/19 09:24 BP 120/75 02/22/19 08:00 Pulse Ox 95 02/22/19 08:00 Intake & Output 02/21/19 02/22/19 02/22/19 18:59 06:59 18:59 Intake Total 542 1745 747 Output Total 3445 1590 200 Balance -2903 155 547 Weight 111.9 kg Intake: IV Fluids 175 128 Keppra 60 NS (0.9%) 115 128 IVPB 567 Keppra 227 abx 340 Medicated IV 367 375 CC - Propofol/Diprivan 367 375 Tube Feeding 600 747 Tube Feeding Flush Amount 75 Output: Urine 3275 1590 200 Dyer 170 Other: # Bowel Movements 1 Estimated Stool Amount Medium O2/Vent: PC 26/+35/+5/35%, changed to AC 20/450/+5/35%; TV 400-500, Peak 37 still Infusions: propofol 45 Medications: Acetaminophen (Tylenol Tab*) 650 mg PO Q6H PRN PRN Reason: MILD PAIN or TEMP > 100.4 Albuterol/Ipratropium (Duoneb (Albuterol 2.5 Mg/Ipratropium 0.5 Mg)) 1 neb INH Q4H PRN PRN Reason: TO IMPROVE CLINICAL CONDITION Last Admin: 02/22/19 09:03 Dose: 1 neb Atorvastatin Calcium (Lipitor*) 20 mg PO DAILY [facility] Last Admin: 02/22/19 08:01 Dose: 20 mg Chlorhexidine Gluconate (Peridex Mouth Wash 0.12%*) 15 ml TOPICAL Q4H [facility] Last Admin: 02/22/19 08:01 Dose: 15 ml Enoxaparin Sodium (Lovenox(*)) 40 mg SUBCUT Q24H [facility] Last Admin: 02/22/19 06:09 Dose: 40 mg Famotidine (Pepcid Susp 8mg/Ml) 20 mg J TUBE BID [facility] Last Admin: 02/22/19 08:01 Dose: 20 mg Fluoxetine HCl (Prozac Cap*) 20 mg PO DAILY [facility] Last Admin: 02/22/19 08:01 Dose: 20 mg Doxycycline Hyclate 100 mg/ (Sodium Chloride) 250 mls @ 250 mls/hr IVPB Q12HR [facility] Last Admin: 02/22/19 08:39 Dose: 250 mls/hr Ceftriaxone Sodium 1 gm/ (Sodium Chloride) 50 mls @ 100 mls/hr IVPB Q24H [facility] Last Admin: 02/22/19 04:04 Dose: 100 mls/hr Levetiracetam 250 mg/ Sodium (Chloride) 102.5 mls @ 410 mls/hr IVPB Q12H [facility] Last Admin: 02/22/19 03:45 Dose: 410 mls/hr Propofol (Diprivan*) 100 mls @ 13.56 mls/hr IV .PER PROTOCOL [facility]; Protocol Last Admin: 02/22/19 06:56 Dose: 27.1 mls/hr Lorazepam (Ativan Inj*) 1 mg IV PUSH Q6H PRN PRN Reason: ANXIETY Last Admin: 02/20/19 09:58 Dose: 1 mg Magnesium Oxide (Magox 400 Tab*) 400 mg PO DAILY [facility] Last Admin: 02/22/19 08:01 Dose: 400 mg Methylprednisolone Sodium Succinate (Solu-Medrol 40 Mg) 40 mg IV Q12H [facility] Last Admin: 02/21/19 23:34 Dose: 40 mg Miscellaneous (Ativan Pyxis [place]) 1 ea N/A .ATIVAN IV [place] PRN PRN Reason: PYXIS [place] Morphine Sulfate (Morphine Inj (Syringe))*) 1 mg IV Q2H PRN PRN Reason: PAIN - SEVERE Last Admin: 02/22/19 09:24 Dose: 1 mg Nicotine (Nicotine Patch 14 Mg/24 Hr*) 1 patch TRANSDERM DAILY [facility] Last Admin: 02/22/19 08:01 Dose: 1 patch Ondansetron HCl (Zofran Inj*) 4 mg IV Q6H PRN PRN Reason: NAUSEA Oseltamivir Phosphate (Tamiflu Susp 75 Mg Dose*) 75 mg PO BID [facility] Last Admin: 02/22/19 08:01 Dose: 75 mg Pharmacy Profile Note (Nicotine Patch Removal Note*) 1 note FOLLOW UP 2100 [facility] Last Admin: 02/21/19 20:07 Dose: 1 note Physical Exam: Constitutional: intubated, sedated, no distress, no diaphoresis Head: normocephalic, atraumatic Eyes: no pallor, no icterus ENT: moist mucous membranes Neck: soft, supple, no jvd CVS: tachy+, regular, no murmur Chest/Resp: bilateral air entry but distant breath sounds+, no rhales, no wheeze , no rhonchi, no acc muscle use Abdomen/GI: soft, nontender, nondistended, BS+ Ext/Msk: warm, pulses+, no edema Skin: intact, warm Neuro: sedated, awakens, moves ext/follows commands, moving all extremities Psych: unable to assess due to sedation/intubation Labs: Laboratory Results - last 24 hr 02/22/19 02/22/19 04:40 04:40 WBC 7.6 RBC 4.30 Hgb 12.5 L Hct 37 L MCV 87 MCH 29 MCHC 33 RDW 16 H Plt Count 137 L MPV 9.0 Sodium 140 Potassium 4.6 Chloride 105 Carbon Dioxide 28 Anion Gap 7 BUN 21 Creatinine 1.02 Est GFR ( Amer) 96.0 Est GFR (Non-Af Amer) 79.3 BUN/Creatinine Ratio 20.6 H Glucose 153 H Calcium 8.7 Phosphorus 4.2 Magnesium 2.4 Imaging: cxr 02/20 - ett above abril, bilateral scattered infiltrates, likley congestion cxr 02/22 - ett above abril, some increased infiltrates on right compared to prior Assessment: 43y M w/pmhx of Severe COPD (on daily prednisone), ALBERTINA ( noncompliant with CPAP), Sarcoidosis, active tobacco use, HTN, Pred-diabetes, HLD, PTSD, depression, seizure disorder?; admitted on 02/20 after presenting with respiratory distress and hypoxia progressing to lethargy/acute hypercapnia requiring intubation. He was found to have influenza A infection and diffuse wheezing consistent with acute COPD exacerbation. He is on Tamiflu and Ceftriaxone/doxy for treatment. 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 Plan: Neuro- -sedated, maintain low dose propofol; target rass -1 to -2 -encephalopathy resolved, likely was from hypercapnea -daily sedation holiday -cont fluoxetine for depression -cont keppra for seizure? -Delirium prec; avoid BDZ CVS- -BP and HR stable -not on IVF; making urine; appears euvolemic -lasix 20mg iv x1 -Maintain MAP>65 Resp- -Intubated for acute copd exacc; changed to AC 20/450/+5/35%; peak pressure still remains 35-40, TV 300-400s -CXR 02/22 some increase right infiltrates -no wheezing or rhales on exam -attempted CPAP trial today but became tachypnic to 30s, distress, rising end- tidal, placed back on AC mode and increased sedation -cont solumedrol to 40mg iv q12h ; will eventually maintain back to prednisone for COPD/Sarcoidosis -IV abx for possible CAP/influenza -no sig secretions noted from ETT, no further wheezing appreciated -Wean Fio2 to keep sat>92% -Bronchodilators PRN q4h, Aspiration prec, Pulmonary Toilet -VAP bundle ID- afebrile, wbc normal -Sputum 1/12 with neutrophils and gram+; normal tariq -Influenza A+ infection 1/12 -cont ctx (day#3) and doxy (day#3) for CAP coverage -cont tamiflu 75mg po bid (day 3 of 5) GI- -NGT+; on glucerna TF; tolerating -GI prophylaxis - h2b Renal- -Cr normal; K okay, no acidosis; making urine -strict I/O, replete to keep K>4, Mg>2 -dyer as indicated Heme- -hg stable, plt stable, no bleeding noted Endo-Maintain BG<200, insulin protocol as needed; check hga1c Musculsk- pressure ulcer prophylaxis. Bedrest. Wounds- none Nutrition- glucerna TF DVT prophylaxis: scd, lovenox daily GI prophylaxis: h2b Central Line: no Arterial Line: no Dyer Cathetor: yes Disposition: Patient requires Critical Care/ICU for respiratory failure, intubated, acute copd exaccerbation Patient clinical status: guarded, critical Code Status: full code Total Critical Care time is 60 minutes, excluding procedures/teaching Daryl Weber MD Behaviour Support Teacher (Electronically Signed)
[2019-02-22] MEDS: methylPREDNISolone SOD 40 MG* 1 ML VIAL IV SCH (11:54)
[2019-02-22] MEDS ORDERED: Midazolam* 1 MG/ML 2 ML VIAL (2 MG) IV SLOW PU PRN (14:47)
[2019-02-22] MEDS: Nicotine Patch Removal NOTE FOLLOW UP SCH (21:00)
[2019-02-23] MEDS: Albuterol/Ipratropium NEB.SOL* Albuterol 2.5 MG/Ipratropium 0.5 MG 3 ML INH PRN ×3 (00:39→18:59)
[2019-02-23] MEDS: Propofol* 100 ML IV SCH ×3 (01:12→06:52)
[2019-02-23] MEDS: cefTRIAXone(*) 1 GM in NS 0.9% 50 ML* 50 ML IVPB SCH (02:21)
[2019-02-23] MEDS: methylPREDNISolone SOD 40 MG* 1 ML VIAL IV SCH ×3 (02:21→23:45)
[2019-02-23] MEDS: Chlorhexidine MOUTHWASH 0.12%* 15 ML UDC TOPICAL SCH ×5 (02:21→15:25)
[2019-02-23] MEDS: levETIRAcetam IV* 250 MG in NS 0.9% 100 ML* 100 ML IVPB SCH ×2 (02:22→15:39)
[2019-02-23] MEDS: Enoxaparin(*) 40 MG/0.4 ML SYR SUBCUT SCH (05:07)
[2019-02-23 05:20] LABS: Hematocrit 36 % (42-52); Hemoglobin 12.5 g/dL (14.0-18.0); Mean Corpuscular HGB Conc 35 g/dL (31-36); Mean Corpuscular Hemoglobin 29 pg (27-31); Mean Corpuscular Volume 84 fL (80-94); Mean Platelet Volume 8.7 fL (7.4-10.4); Platelet Count 144 10^3/uL (150-450); Red Blood Count 4.34 10^6 /uL (4.18-5.48); Red Cell Distribution Width 16 % (10-15); White Blood Count 7.2 10^3/uL (3.5-10.8)
[2019-02-23 05:34] LABS: BUN/Creatinine Ratio 23.5 (8-20); EGFR African American 100.5 (>60); EGFR Non-African American 83.1 (>60); Magnesium 2.3 mg/dL (1.9-2.7); Phosphorus 5.7 mg/dL (2.5-5.0); Potassium 4.7 mmol/L (3.5-5.0)
[2019-02-23] MEDS ORDERED: Senna TAB 8.6 mg* TAB ONE (08:34)
[2019-02-23] MEDS: DOXYcycline IV* 100 MG in NS 0.9% 250 ML* 250 ML IVPB SCH ×2 (08:39→22:09)
[2019-02-23] MEDS: Magnesium Oxide TAB* 400 MG PO SCH (08:39)
[2019-02-23] MEDS: Atorvastatin* 20 MG TAB PO SCH (08:39)
[2019-02-23] MEDS: Oseltamivir SUSP 75 MG dose* 75 MG/12.5 ML ORAL.SYRIN PO SCH (08:39)
[2019-02-23] MEDS: Famotidine SUSP ORALSYR 8 MG/ML J TUBE SCH (08:39)
[2019-02-23] MEDS: Nicotine PATCH 14 MG/24 HR* PATCH TRANSDERM SCH (08:39)
[2019-02-23] MEDS: FLUoxetine CAP* 20 MG PO SCH (08:39)
[2019-02-23] MEDS: Senna TAB 8.6 mg* TAB PO SCH ×2 (08:40→21:24)
--- NOTE | 2019-02-23 10:44 | PN ---
Progress Note - Progress Note Date of Service: 02/23/19 Note: Progress Note -- Critical Care 24 hour events/significant events: -awake, on no sedation, follows commands -no sig events overnivht -failed CPAP weaning yesterday -on CPAP 01/13 now, still tachypneic on CPAP -some bloody secretions noted from ett on suctioning only -tmax 98-99; BP stable, HR stable ROS - limited due to intubation/sedation Tele: NSR Vitals: Vital Signs Temp 99.2 F 02/23/19 07:25 Pulse 101 02/23/19 10:01 Resp 42 02/23/19 10:00 BP 104/78 02/23/19 10:01 Pulse Ox 96 02/23/19 10:01 Intake & Output 02/22/19 02/23/19 02/23/19 18:59 06:59 18:59 Intake Total 1435.3 950 Output Total 1300 700 175 Balance 135.3 250 -175 Weight 111 kg Intake: IV Fluids 86.3 300 NS (0.9%) 86.3 abx 300 IVPB 270 abx 270 Medicated IV 332 CC - Propofol/Diprivan 332 Oral 0 Tube Feeding 747 650 Output: Urine 1300 175 Dyer 700 Other: Estimated Void Large Date of Last Bowel 02/22/2018 Movement Estimated Stool Amount Small O2/Vent: AC 20/450/+5/35%; TV 400-500, Peak 30s Infusions: propofol Medications: Acetaminophen (Tylenol Tab*) 650 mg PO Q6H PRN PRN Reason: MILD PAIN or TEMP > 100.4 Albuterol/Ipratropium (Duoneb (Albuterol 2.5 Mg/Ipratropium 0.5 Mg)) 1 neb INH Q4H PRN PRN Reason: TO IMPROVE CLINICAL CONDITION Last Admin: 02/23/19 00:39 Dose: 1 neb Atorvastatin Calcium (Lipitor*) 20 mg PO DAILY [facility] Last Admin: 02/23/19 08:39 Dose: 20 mg Chlorhexidine Gluconate (Peridex Mouth Wash 0.12%*) 15 ml TOPICAL Q4H [facility] Last Admin: 02/23/19 08:39 Dose: 15 ml Enoxaparin Sodium (Lovenox(*)) 40 mg SUBCUT Q24H [facility] Last Admin: 02/23/19 05:07 Dose: 40 mg Famotidine (Pepcid Susp 8mg/Ml) 20 mg J TUBE BID [facility] Last Admin: 02/23/19 08:39 Dose: 20 mg Fluoxetine HCl (Prozac Cap*) 20 mg PO DAILY [facility] Last Admin: 02/23/19 08:39 Dose: 20 mg Doxycycline Hyclate 100 mg/ (Sodium Chloride) 250 mls @ 250 mls/hr IVPB Q12HR [facility] Last Admin: 02/23/19 08:39 Dose: 250 mls/hr Ceftriaxone Sodium 1 gm/ (Sodium Chloride) 50 mls @ 100 mls/hr IVPB Q24H [facility] Last Admin: 02/23/19 02:21 Dose: 100 mls/hr Levetiracetam 250 mg/ Sodium (Chloride) 102.5 mls @ 410 mls/hr IVPB Q12H [facility] Last Admin: 02/23/19 02:22 Dose: 410 mls/hr Propofol (Diprivan*) 100 mls @ 13.56 mls/hr IV .PER PROTOCOL [facility]; Protocol Last Admin: 02/23/19 06:52 Dose: 36.6 mls/hr Lorazepam (Ativan Inj*) 1 mg IV PUSH Q6H PRN PRN Reason: ANXIETY Last Admin: 02/20/19 09:58 Dose: 1 mg Magnesium Oxide (Magox 400 Tab*) 400 mg PO DAILY [facility] Last Admin: 02/23/19 08:39 Dose: 400 mg Methylprednisolone Sodium Succinate (Solu-Medrol 40 Mg) 40 mg IV Q12H [facility] Last Admin: 02/23/19 02:21 Dose: 40 mg Midazolam HCl (Versed 2mg/2ml*) 2 mg IV SLOW PU Q1H PRN PRN Reason: tachypnea/respiratory distress Last Admin: 02/22/19 16:48 Dose: 2 mg Miscellaneous (Ativan Pyxis [place]) 1 ea N/A .ATIVAN IV [place] PRN PRN Reason: PYXIS [place] Morphine Sulfate (Morphine Inj (Syringe))*) 1 mg IV Q2H PRN PRN Reason: PAIN - SEVERE Last Admin: 02/22/19 09:24 Dose: 1 mg Nicotine (Nicotine Patch 14 Mg/24 Hr*) 1 patch TRANSDERM DAILY [facility] Last Admin: 02/23/19 08:39 Dose: 1 patch Ondansetron HCl (Zofran Inj*) 4 mg IV Q6H PRN PRN Reason: NAUSEA Oseltamivir Phosphate (Tamiflu Susp 75 Mg Dose*) 75 mg PO BID [facility] Stop: 02/24/19 23:59 Last Admin: 02/23/19 08:39 Dose: 75 mg Pharmacy Profile Note (Nicotine Patch Removal Note*) 1 note FOLLOW UP 2100 [facility] Last Admin: 02/22/19 21:00 Dose: Not Given Senna (Senokot 8.6 Mg Tab*) 1 tab PO BID [facility] Last Admin: 02/23/19 08:40 Dose: 1 tab Physical Exam: Constitutional: intubated, sedated, tachypnea+, no diaphoresis Head: normocephalic, atraumatic Eyes: no pallor, no icterus ENT: moist mucous membranes Neck: soft, supple, no jvd CVS: tachy+, regular, no murmur Chest/Resp: bilateral air entry but distant breath sounds+, no rhales, no wheeze , some coarse breath sounds on right, rhonchi, no acc muscle use Abdomen/GI: soft, nontender, nondistended, BS+ Ext/Msk: warm, pulses+, no edema Skin: intact, warm Neuro: sedated, awakens, moves ext/follows commands, moving all extremities Psych: unable to assess due to sedation/intubation Labs: Laboratory Results - last 24 hr 02/21/19 02/23/19 02/23/19 04:47 05:07 05:07 WBC 7.2 RBC 4.34 Hgb 12.5 L Hct 36 L MCV 84 MCH 29 MCHC 35 RDW 16 H Plt Count 144 L MPV 8.7 Sodium 141 Potassium 4.7 Chloride 100 L Carbon Dioxide 37 H Anion Gap 4 BUN 23 Creatinine 0.98 Est GFR ( Amer) 100.5 Est GFR (Non-Af Amer) 83.1 BUN/Creatinine Ratio 23.5 H Glucose 129 H Hemoglobin A1c 7.0 H Calcium 9.0 Phosphorus 5.7 H Magnesium 2.3 Imaging: cxr 02/20 - ett above abril, bilateral scattered infiltrates, likley congestion cxr 02/22 - ett above abril, some increased infiltrates on right compared to prior Assessment: 43y M w/pmhx of Severe COPD (on daily prednisone), ALBERTINA ( noncompliant with CPAP), Sarcoidosis, active tobacco use, HTN, Pred-diabetes, HLD, PTSD, depression, seizure disorder?; admitted on 02/20 after presenting with respiratory distress and hypoxia progressing to lethargy/acute hypercapnia requiring intubation. He was found to have influenza A infection and diffuse wheezing consistent with acute COPD exacerbation. He is on Tamiflu and Ceftriaxone/doxy for treatment. 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 Plan: Neuro- -sedated, maintain low dose propofol; target rass -1 to -2 -encephalopathy resolved, likely was from hypercapnea -daily sedation holiday -cont fluoxetine for depression -cont keppra for seizure? -Delirium prec; avoid BDZ CVS- -BP and HR stable -no IVF; making urine; appears euvolemic -Maintain MAP>65 Resp- -Intubated for acute copd exacc; AC 20/450/+5/35%; peak pressure still remains 35-40, TV 300-400s -CPAP trial ongoing now -CXR 02/22 some increase right infiltrates -will obtain CT chest to evaluate for effusions and new infitlrates developing -no wheezing or rhales on exam -cont solumedrol to 40mg iv q12h ; will eventually maintain back to prednisone for COPD/Sarcoidosis -IV abx for possible CAP/influenza -mild bloody secretions from ett, not copious, only from suctioning -no wheezing now; 1 episode overnight resolved after nebulizer tx -Wean Fio2 to keep sat>92% -Bronchodilators PRN q4h, Aspiration prec, Pulmonary Toilet -VAP bundle ID- afebrile, wbc normal -Sputum 02/20 with neutrophils and gram+; normal tariq -Influenza A+ infection 02/20 -cont ctx (day#4) and doxy (day#4) for CAP coverage -cont tamiflu 75mg po bid (day 4 of 5) GI- -NGT+; on glucerna TF; tolerating -GI prophylaxis - h2b Renal- -Cr normal; K okay, no acidosis; making urine -strict I/O, replete to keep K>4, Mg>2 -dyer as indicated Heme- -hg stable, plt stable, no bleeding noted Endo-Maintain BG<200, insulin protocol as needed; hga1c 7.0, may be hyperglycemia from chronic steroid use vs DM. last BG on chemistry 120-150s, not on ISS; on steroids and TF only. will observe and continue to watch Musculsk- pressure ulcer prophylaxis. Bedrest, oob to chair today Wounds- none Nutrition- glucerna TF DVT prophylaxis: scd, lovenox daily GI prophylaxis: h2b Central Line: no Arterial Line: no Dyer Cathetor: yes Disposition: Patient requires Critical Care/ICU for respiratory failure, intubated, acute copd exaccerbation Patient clinical status: guarded, critical Code Status: full code Total Critical Care time is 45 minutes, excluding procedures/teaching Daryl Weber MD Emergency Medicine Specialist (Electronically Signed)
[2019-02-23] MEDS: Famotidine TAB* 20 MG PO SCH (22:08)
[2019-02-23] MEDS: Oseltamivir CAP* 75 MG CAP PO SCH (22:08)
[2019-02-23] MEDS: Nicotine Patch Removal NOTE FOLLOW UP SCH (22:16)
[2019-02-24] MEDS: levETIRAcetam IV* 250 MG in NS 0.9% 100 ML* 100 ML IVPB SCH (03:20)
[2019-02-24] MEDS: cefTRIAXone(*) 1 GM in NS 0.9% 50 ML* 50 ML IVPB SCH (04:07)
[2019-02-24] MEDS: Enoxaparin(*) 40 MG/0.4 ML SYR SUBCUT SCH (05:15)
[2019-02-24 06:00] LABS: Hematocrit 36 % (42-52); Hemoglobin 12.2 g/dL (14.0-18.0); Mean Corpuscular HGB Conc 34 g/dL (31-36); Mean Corpuscular Hemoglobin 29 pg (27-31); Mean Corpuscular Volume 84 fL (80-94); Mean Platelet Volume 8.6 fL (7.4-10.4); Platelet Count 141 10^3/uL (150-450); Red Blood Count 4.24 10^6 /uL (4.18-5.48); Red Cell Distribution Width 16 % (10-15); White Blood Count 6.1 10^3/uL (3.5-10.8)
[2019-02-24 06:10] LABS: BUN/Creatinine Ratio 31.1 (8-20); Calcium 8.8 mg/dL (8.6-10.3); EGFR African American 110.9 (>60); EGFR Non-African American 91.7 (>60); Magnesium 2.4 mg/dL (1.9-2.7); Potassium 4.9 mmol/L (3.5-5.0)
[2019-02-24] MEDS: Famotidine TAB* 20 MG PO SCH ×2 (09:19→21:32)
[2019-02-24] MEDS: Magnesium Oxide TAB* 400 MG PO SCH (09:19)
[2019-02-24] MEDS: FLUoxetine CAP* 20 MG PO SCH (09:19)
[2019-02-24] MEDS: DOXYcycline IV* 100 MG in NS 0.9% 250 ML* 250 ML IVPB SCH ×2 (09:19→21:33)
[2019-02-24] MEDS: Oseltamivir CAP* 75 MG CAP PO SCH ×2 (09:20→21:31)
[2019-02-24] MEDS: Senna TAB 8.6 mg* TAB PO SCH ×2 (09:20→21:33)
[2019-02-24] MEDS: Atorvastatin* 20 MG TAB PO SCH (09:20)
[2019-02-24] MEDS: Nicotine PATCH 14 MG/24 HR* PATCH TRANSDERM SCH (09:20)
[2019-02-24] MEDS: methylPREDNISolone SOD 40 MG* 1 ML VIAL IV SCH ×2 (12:56→23:24)
--- NOTE | 2019-02-24 13:02 | PN ---
Progress Note - Progress Note Date of Service: 02/24/19 Note: Progress Note -- Critical Care 24 hour events/significant events: -extubated yesterday, doing well , CPAP at night -in chair now, awake, alert, passed swallow eval -BP and HR stable -on NC 3 L ROS: negative except for pertinent positives mentioned above Tele: NSR Vitals: Vital Signs Temp 96.9 F 02/24/19 11:57 Pulse 90 02/24/19 10:27 Resp 16 02/24/19 10:27 BP 136/77 02/24/19 10:27 Pulse Ox 96 02/24/19 10:27 Intake & Output 02/23/19 02/24/19 02/24/19 18:59 06:59 18:59 Intake Total 422.8 1142.5 100 Output Total 725 1300 Balance -302.2 -157.5 100 Weight 111.385 kg Intake: IV Fluids 315.8 352.5 Keppra 102.5 NS (0.9%) 35.8 abx 280 250 IVPB 70 NS (0.9%) 20 abx 50 Medicated IV 107 CC - Propofol/Diprivan 107 Oral 720 100 Output: Urine 725 1300 Other: Estimated Void Medium Date of Last Bowel 02/23/19 02/23/19 Movement Estimated Stool Amount Medium # Voids 3 O2/Vent: NC 3L Infusions: heplock Medications: Acetaminophen (Tylenol Tab*) 650 mg PO Q6H PRN PRN Reason: MILD PAIN or TEMP > 100.4 Albuterol/Ipratropium (Duoneb (Albuterol 2.5 Mg/Ipratropium 0.5 Mg)) 1 neb INH Q4H PRN PRN Reason: TO IMPROVE CLINICAL CONDITION Last Admin: 02/23/19 18:59 Dose: 1 neb Atorvastatin Calcium (Lipitor*) 20 mg PO DAILY [facility] Last Admin: 02/24/19 09:20 Dose: 20 mg Enoxaparin Sodium (Lovenox(*)) 40 mg SUBCUT Q24H [facility] Last Admin: 02/24/19 05:15 Dose: 40 mg Famotidine (Pepcid Tab*) 20 mg PO BID [facility] Last Admin: 02/24/19 09:19 Dose: 20 mg Fluoxetine HCl (Prozac Cap*) 20 mg PO DAILY [facility] Last Admin: 02/24/19 09:19 Dose: 20 mg Doxycycline Hyclate 100 mg/ (Sodium Chloride) 250 mls @ 250 mls/hr IVPB Q12HR [facility] Last Admin: 02/24/19 09:19 Dose: 250 mls/hr Ceftriaxone Sodium 1 gm/ (Sodium Chloride) 50 mls @ 100 mls/hr IVPB Q24H [facility] Last Admin: 02/24/19 04:07 Dose: 100 mls/hr Levetiracetam 250 mg/ Sodium (Chloride) 102.5 mls @ 410 mls/hr IVPB Q12H [facility] Last Admin: 02/24/19 03:20 Dose: 410 mls/hr Magnesium Oxide (Magox 400 Tab*) 400 mg PO DAILY [facility] Last Admin: 02/24/19 09:19 Dose: 400 mg Methylprednisolone Sodium Succinate (Solu-Medrol 40 Mg) 40 mg IV Q12H [facility] Last Admin: 02/24/19 12:56 Dose: 40 mg Nicotine (Nicotine Patch 14 Mg/24 Hr*) 1 patch TRANSDERM DAILY [facility] Last Admin: 02/24/19 09:20 Dose: 1 patch Ondansetron HCl (Zofran Inj*) 4 mg IV Q6H PRN PRN Reason: NAUSEA Oseltamivir Phosphate (Tamiflu Cap*) 75 mg PO BID [facility] Stop: 02/24/19 23:00 Last Admin: 02/24/19 09:20 Dose: 75 mg Pharmacy Profile Note (Nicotine Patch Removal Note*) 1 note FOLLOW UP 2100 [facility] Last Admin: 02/23/19 22:16 Dose: Not Given Senna (Senokot 8.6 Mg Tab*) 1 tab PO BID [facility] Last Admin: 02/24/19 09:20 Dose: 1 tab Physical Exam: Constitutional: awake, alert, no distress, no diaphoresis Head: normocephalic, atraumatic Eyes: no pallor, no icterus ENT: moist mucous membranes Neck: soft, supple, no jvd CVS: tachy+, regular, no murmur Chest/Resp: bilateral air entry but distant breath sounds+, no rhales, no wheeze , no rhonchi, no acc muscle use Abdomen/GI: soft, nontender, nondistended, BS+ Ext/Msk: warm, pulses+, no edema Skin: intact, warm Neuro: awake, alert, moving all ext, no focal findings Psych: normal affect Labs: Laboratory Results - last 24 hr 02/24/19 02/24/19 05:36 05:36 WBC 6.1 RBC 4.24 Hgb 12.2 L Hct 36 L MCV 84 MCH 29 MCHC 34 RDW 16 H Plt Count 141 L MPV 8.6 Sodium 138 Potassium 4.9 Chloride 98 L Carbon Dioxide 36 H Anion Gap 4 BUN 28 H Creatinine 0.90 Est GFR ( Amer) 110.9 Est GFR (Non-Af Amer) 91.7 BUN/Creatinine Ratio 31.1 H Glucose 112 H Calcium 8.8 Phosphorus 5.0 Magnesium 2.4 Imaging: cxr 02/20 - ett above abril, bilateral scattered infiltrates, likley congestion cxr 02/22 - ett above abril, some increased infiltrates on right compared to prior CT chest 02/23 - emphysematous changes+; scattered infitlrates Assessment: 43y M w/pmhx of Severe COPD (on daily prednisone), ALBERTINA ( noncompliant with CPAP), Sarcoidosis, active tobacco use, HTN, Pred-diabetes, HLD, PTSD, depression, seizure disorder?; admitted on 02/20 after presenting with respiratory distress and hypoxia progressing to lethargy/acute hypercapnia requiring intubation. He was found to have influenza A infection and diffuse wheezing consistent with acute COPD exacerbation. He is on Tamiflu and Ceftriaxone/doxy for treatment. 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 Plan: Neuro- -awake, alert -unclear why on keppra but patient stopped taking it months back; no h/o seizures either -cont fluoxetine for depression -cont keppra for seizure? -Delirium prec; avoid BDZ CVS- -BP and HR stable -no IVF; making urine; appears euvolemic -Maintain MAP>65 Resp- -extubated 02/23; on NC, no distress -CPAP at night CT chest 02/23 reviewed -no wheezing or rhales -cont solumedrol to 40mg iv q12h ; will eventually maintain back to prednisone for COPD/Sarcoidosis -pulm consult on medical floor -IV abx for possible CAP/influenza -no further blood secretions or coughing up blood -Wean Fio2 to keep sat>92% -Bronchodilators PRN q4h, Aspiration prec ID- afebrile, wbc normal -Sputum 1/12 with neutrophils and gram+; normal tariq -Influenza A+ infection 1/12 -cont ctx (day#5) and doxy (day#5) for CAP coverage; d/c after today -cont tamiflu 75mg po bid (day 5 of 5); d/c after today GI- -passed swallow; start PO diabetic diet -GI prophylaxis - h2b Renal- -Cr normal; K okay, no acidosis; making urine -d/c dyer -strict I/O, replete to keep K>4, Mg>2 -dyer as indicated Heme- -hg stable, plt stable, no bleeding noted Endo-Maintain BG<200, insulin protocol as needed; hga1c 7.0, may be hyperglycemia from chronic steroid use; diabetic diet; ISS. also on steroids still Musculsk- pressure ulcer prophylaxis. oob to chair. Wounds- none Nutrition- diabetic diet DVT prophylaxis: scd, lovenox daily GI prophylaxis: h2b Central Line: no Arterial Line: no Dyer Cathetor: yes, d/c Disposition: stable for transfer to medical floor Patient clinical status: stable Code Status: full code Daryl Weber MD Director Of Learning (Electronically Signed)
[2019-02-24] MEDS: Albuterol/Ipratropium NEB.SOL* Albuterol 2.5 MG/Ipratropium 0.5 MG 3 ML INH PRN (16:52)
[2019-02-24] MEDS: Nicotine Patch Removal NOTE FOLLOW UP SCH (21:33)
[2019-02-24] MEDS: Acetaminophen TAB* 325 MG PO PRN (21:46)
[2019-02-25] MEDS: Enoxaparin(*) 40 MG/0.4 ML SYR SUBCUT SCH (05:32)
[2019-02-25 07:08] LABS: Hematocrit 40 % (42-52); Mean Corpuscular HGB Conc 35 g/dL (31-36); Mean Corpuscular Hemoglobin 29 pg (27-31); Mean Corpuscular Volume 83 fL (80-94); Mean Platelet Volume 8.5 fL (7.4-10.4); Platelet Count 170 10^3/uL (150-450); Red Cell Distribution Width 15 % (10-15); White Blood Count 5.5 10^3/uL (3.5-10.8)
[2019-02-25 07:39] LABS: BUN/Creatinine Ratio 32.6 (8-20); Calcium 9.3 mg/dL (8.6-10.3); EGFR African American 104.2 (>60); EGFR Non-African American 86.1 (>60); Magnesium 2.3 mg/dL (1.9-2.7); Phosphorus 4.3 mg/dL (2.5-5.0); Potassium 4.8 mmol/L (3.5-5.0)
[2019-02-25] MEDS: Albuterol/Ipratropium NEB.SOL* Albuterol 2.5 MG/Ipratropium 0.5 MG 3 ML INH PRN (10:15)
[2019-02-25] MEDS: Senna TAB 8.6 mg* TAB PO SCH ×2 (11:02→20:09)
[2019-02-25] MEDS: Atorvastatin* 20 MG TAB PO SCH (11:02)
[2019-02-25] MEDS: Famotidine TAB* 20 MG PO SCH ×2 (11:02→20:09)
[2019-02-25] MEDS: FLUoxetine CAP* 20 MG PO SCH (11:02)
[2019-02-25] MEDS: levETIRAcetam TAB* 500 MG PO SCH (11:02)
[2019-02-25] MEDS: Magnesium Oxide TAB* 400 MG PO SCH (11:02)
[2019-02-25] MEDS: Nicotine PATCH 14 MG/24 HR* PATCH TRANSDERM SCH (11:02)
[2019-02-25] MEDS: methylPREDNISolone SOD 40 MG* 1 ML VIAL IV SCH (11:51)
--- NOTE | 2019-02-25 17:00 | PN ---
Subjective Date of Service: 02/25/19 Interval History: Reports some improvement.Still sob Objective Active Medications: Acetaminophen (Tylenol Tab*) 650 mg PO Q6H PRN PRN Reason: MILD PAIN or TEMP > 100.4 Last Admin: 02/24/19 21:46 Dose: 650 mg Albuterol/Ipratropium (Duoneb (Albuterol 2.5 Mg/Ipratropium 0.5 Mg)) 1 neb INH Q4H PRN PRN Reason: TO IMPROVE CLINICAL CONDITION Last Admin: 02/25/19 10:15 Dose: 1 neb Atorvastatin Calcium (Lipitor*) 20 mg PO DAILY [facility] Last Admin: 02/25/19 11:02 Dose: 20 mg Enoxaparin Sodium (Lovenox(*)) 40 mg SUBCUT Q24H [facility] Last Admin: 02/25/19 05:32 Dose: 40 mg Famotidine (Pepcid Tab*) 20 mg PO BID [facility] Last Admin: 02/25/19 11:02 Dose: 20 mg Fluoxetine HCl (Prozac Cap*) 20 mg PO DAILY [facility] Last Admin: 02/25/19 11:02 Dose: 20 mg Levetiracetam (Keppra Tab*) 250 mg PO DAILY [facility] Last Admin: 02/25/19 11:02 Dose: 250 mg Magnesium Oxide (Magox 400 Tab*) 400 mg PO DAILY [facility] Last Admin: 02/25/19 11:02 Dose: 400 mg Methylprednisolone Sodium Succinate (Solu-Medrol 40 Mg) 40 mg IV Q12H [facility] Last Admin: 02/25/19 11:51 Dose: 40 mg Nicotine (Nicotine Patch 14 Mg/24 Hr*) 1 patch TRANSDERM DAILY [facility] Last Admin: 02/25/19 11:02 Dose: 1 patch Ondansetron HCl (Zofran Inj*) 4 mg IV Q6H PRN PRN Reason: NAUSEA Pharmacy Profile Note (Nicotine Patch Removal Note*) 1 note FOLLOW UP 2100 [facility] Last Admin: 02/24/19 21:33 Dose: 1 note Senna (Senokot 8.6 Mg Tab*) 1 tab PO BID [facility] Last Admin: 02/25/19 11:02 Dose: 1 tab Vital Signs - 8 hr 02/25/19 02/25/19 02/25/19 10:18 12:00 15:48 Temperature 96.5 F Pulse Rate 87 Respiratory 18 20 Rate Blood Pressure 123/78 (mmHg) O2 Sat by Pulse 90 92 Oximetry Oxygen Devices in Use Now: Nasal Cannula Eyes: No Scleral Icterus Ears/Nose/Mouth/Throat: NL Teeth, Lips, Gums Neck: NL Appearance and Movements; NL JVP Respiratory: Symmetrical Chest Expansion and Respiratory Effort, - - bilateral rhonchi Cardiovascular: NL Sounds; No Murmurs; No JVD Abdominal: NL Sounds; No Tenderness; No Distention Extremities: No Edema Neurological: Alert and Oriented x 3 Result Diagrams: 02/25/19 07:02 02/25/19 07:02 Microbiology and Other Data: Microbiology 02/23/19 11:30 Gram Stain - Final Sputum Sputum Culture - Final Normal Josie 02/20/19 04:08 Aerobic Blood Culture - Final Blood Venous No Growth Day 5 Anaerobic Blood Culture - Final No Growth Day 5 02/20/19 13:50 Gram Stain - Final Sputum Sputum Culture - Final Normal Josie 02/20/19 05:51 Urine Culture - Final Urine No Growth (<1,000 CFU/mL) 02/20/19 05:14 Nasal Screen MRSA (PCR) - Final Nasal Mrsa Not Detected 02/20/19 05:50 Legionella Urinary Antigen - Final Urine Negative Legionella Antigen Streptococcus pneumoniae Ag Screen - Final Negative S. pneumo Antigen Assess/Plan/Problems-Billing Assessment: - Patient Problems (1) Influenza Current Visit: Yes Status: Acute Code(s): J11.1 - FLU DUE TO UNIDENTIFIED INFLUENZA VIRUS W OTH RESP MANIFEST SNOMED Code(s): 2769996 Comment: completed tamiflu 06/13 (2) COPD exacerbation Current Visit: Yes Status: Acute Code(s): J44.1 - CHRONIC OBSTRUCTIVE PULMONARY DISEASE W (ACUTE) EXACERBATION SNOMED Code(s): 943894806 Comment: iv steroids needs o2 will qualify (3) Acute hypercapnic respiratory failure Current Visit: Yes Status: Acute Code(s): J96.02 - ACUTE RESPIRATORY FAILURE WITH HYPERCAPNIA SNOMED Code(s): 839779513 Comment: sec influenza, pneumonia, copd exacerbation and daniela (4) Pneumonia Current Visit: Yes Status: Acute Code(s): J18.9 - PNEUMONIA, UNSPECIFIED ORGANISM SNOMED Code(s): 484702443 Comment: ceftriaxone, doxycyline 06/13 (5) DANIELA (obstructive sleep apnea) Current Visit: Yes Status: Acute Code(s): G47.33 - OBSTRUCTIVE SLEEP APNEA ( ADULT) (PEDIATRIC) SNOMED Code(s): 30251654 Comment: cpap Status and Disposition: [email or web address]
[2019-02-25] MEDS: Nicotine Patch Removal NOTE FOLLOW UP SCH (20:29)
[2019-02-25] MEDS: Acetaminophen TAB* 325 MG PO PRN (21:39)
[2019-02-25] MEDS ORDERED: guaiFENesin 100 mg/5 ml LIQ unit dose cup PO PRN (22:15)
[2019-02-26] MEDS: Benzonatate CAP* 100 MG PO PRN ×2 (00:08→21:07)
[2019-02-26] MEDS: methylPREDNISolone SOD 40 MG* 1 ML VIAL IV SCH ×2 (00:08→13:03)
[2019-02-26] MEDS: Enoxaparin(*) 40 MG/0.4 ML SYR SUBCUT SCH (05:43)
[2019-02-26 07:09] LABS: ABS Lymphocytes 0.6 10^3/ul (1.0-4.8); ABS Monocytes 0.4 10^3/ul (0-0.8); ABS Neutrophils 4.2 10^3/ul (1.5-7.7); Eosinophil % 0.1 %; Hematocrit 39 % (42-52); Hemoglobin 13.5 g/dL (14.0-18.0); Lymphocyte % 10.9 %; Mean Corpuscular HGB Conc 35 g/dL (31-36); Mean Corpuscular Hemoglobin 29 pg (27-31); Mean Corpuscular Volume 84 fL (80-94); Mean Platelet Volume 8.9 fL (7.4-10.4); Platelet Count 177 10^3/uL (150-450); Red Blood Count 4.64 10^6 /uL (4.18-5.48); Red Cell Distribution Width 15 % (10-15); White Blood Count 5.2 10^3/uL (3.5-10.8)
[2019-02-26 07:46] LABS: BUN/Creatinine Ratio 31.9 (8-20); Blood Urea Nitrogen 29 mg/dL (6-24); CO2 Carbon Dioxide 33 mmol/L (22-32); Chloride 101 mmol/L (101-111); EGFR African American 109.5 (>60); EGFR Non-African American 90.5 (>60); Glucose 122 mg/dL (70-100); Magnesium 2.3 mg/dL (1.9-2.7); Phosphorus 4.7 mg/dL (2.5-5.0); Sodium 138 mmol/L (135-145)
[2019-02-26 09:02] LABS: Anion Gap 4 mmol/L (2-11)
[2019-02-26] MEDS: Magnesium Oxide TAB* 400 MG PO SCH (09:29)
[2019-02-26] MEDS: Atorvastatin* 20 MG TAB PO SCH (09:29)
[2019-02-26] MEDS: Famotidine TAB* 20 MG PO SCH ×2 (09:29→21:06)
[2019-02-26] MEDS: FLUoxetine CAP* 20 MG PO SCH (09:29)
[2019-02-26] MEDS: levETIRAcetam TAB* 500 MG PO SCH (09:29)
[2019-02-26] MEDS: Senna TAB 8.6 mg* TAB PO SCH ×3 (09:31→21:10)
[2019-02-26] MEDS: Nicotine PATCH 14 MG/24 HR* PATCH TRANSDERM SCH (09:33)
--- NOTE | 2019-02-26 13:58 | PN ---
Subjective Date of Service: 02/26/19 Interval History: Reports some improvement in breathing Objective Active Medications: Acetaminophen (Tylenol Tab*) 650 mg PO Q6H PRN PRN Reason: MILD PAIN or TEMP > 100.4 Last Admin: 02/25/19 21:39 Dose: 650 mg Albuterol/Ipratropium (Duoneb (Albuterol 2.5 Mg/Ipratropium 0.5 Mg)) 1 neb INH Q4H PRN PRN Reason: TO IMPROVE CLINICAL CONDITION Last Admin: 02/25/19 10:15 Dose: 1 neb Atorvastatin Calcium (Lipitor*) 20 mg PO DAILY [facility] Last Admin: 02/26/19 09:29 Dose: 20 mg Benzonatate (Tessalon Cap*) 100 mg PO BID PRN PRN Reason: COUGH Last Admin: 02/26/19 00:08 Dose: 100 mg Enoxaparin Sodium (Lovenox(*)) 40 mg SUBCUT Q24H [facility] Last Admin: 02/26/19 05:43 Dose: 40 mg Famotidine (Pepcid Tab*) 20 mg PO BID [facility] Last Admin: 02/26/19 09:29 Dose: 20 mg Fluoxetine HCl (Prozac Cap*) 20 mg PO DAILY [facility] Last Admin: 02/26/19 09:29 Dose: 20 mg Guaifenesin (Mucinex*) 600 mg PO BID [facility] Levetiracetam (Keppra Tab*) 250 mg PO DAILY [facility] Last Admin: 02/26/19 09:29 Dose: 250 mg Magnesium Oxide (Magox 400 Tab*) 400 mg PO DAILY [facility] Last Admin: 02/26/19 09:29 Dose: 400 mg Methylprednisolone Sodium Succinate (Solu-Medrol 40 Mg) 40 mg IV DAILY [facility] Nicotine (Nicotine Patch 14 Mg/24 Hr*) 1 patch TRANSDERM DAILY [facility] Last Admin: 02/26/19 09:33 Dose: 1 patch Ondansetron HCl (Zofran Inj*) 4 mg IV Q6H PRN PRN Reason: NAUSEA Pharmacy Profile Note (Nicotine Patch Removal Note*) 1 note FOLLOW UP 2100 [facility] Last Admin: 02/25/19 20:29 Dose: 1 note Senna (Senokot 8.6 Mg Tab*) 1 tab PO BID [facility] Last Admin: 02/26/19 09:31 Dose: 1 tab Vital Signs - 8 hr 02/26/19 08:00 Temperature 98.1 F Pulse Rate 71 Respiratory 22 Rate Blood Pressure 132/76 (mmHg) Oxygen Devices in Use Now: Nasal Cannula Eyes: No Scleral Icterus Ears/Nose/Mouth/Throat: NL Teeth, Lips, Gums, Clear Oropharnyx Neck: NL Appearance and Movements; NL JVP Respiratory: Symmetrical Chest Expansion and Respiratory Effort, Clear to Auscultation Cardiovascular: NL Sounds; No Murmurs; No JVD Abdominal: NL Sounds; No Tenderness; No Distention Extremities: No Edema Neurological: Alert and Oriented x 3 Result Diagrams: 02/26/19 06:44 02/26/19 06:44 Microbiology and Other Data: Microbiology 02/23/19 11:30 Gram Stain - Final Sputum Sputum Culture - Final Normal Josie 02/20/19 04:08 Aerobic Blood Culture - Final Blood Venous No Growth Day 5 Anaerobic Blood Culture - Final No Growth Day 5 02/20/19 13:50 Gram Stain - Final Sputum Sputum Culture - Final Normal Josie 02/20/19 05:51 Urine Culture - Final Urine No Growth (<1,000 CFU/mL) 02/20/19 05:14 Nasal Screen MRSA (PCR) - Final Nasal Mrsa Not Detected 02/20/19 05:50 Legionella Urinary Antigen - Final Urine Negative Legionella Antigen Streptococcus pneumoniae Ag Screen - Final Negative S. pneumo Antigen Assess/Plan/Problems-Billing Assessment: - Patient Problems (1) Influenza Current Visit: Yes Status: Acute Code(s): J11.1 - FLU DUE TO UNIDENTIFIED INFLUENZA VIRUS W OTH RESP MANIFEST SNOMED Code(s): 0599221 Comment: completed tamiflu 06/13 (2) COPD exacerbation Current Visit: Yes Status: Acute Code(s): J44.1 - CHRONIC OBSTRUCTIVE PULMONARY DISEASE W (ACUTE) EXACERBATION SNOMED Code(s): 849504236 Comment: iv steroids needs o2 will qualify reduce solumedrol to 40 mg iv qd from bid (3) Acute hypercapnic respiratory failure Current Visit: Yes Status: Acute Code(s): J96.02 - ACUTE RESPIRATORY FAILURE WITH HYPERCAPNIA SNOMED Code(s): 618931100 Comment: sec influenza, pneumonia, copd exacerbation and daniela (4) Pneumonia Current Visit: Yes Status: Acute Code(s): J18.9 - PNEUMONIA, UNSPECIFIED ORGANISM SNOMED Code(s): 088707818 Comment: ceftriaxone, doxycyline 5/ (5) DANIELA (obstructive sleep apnea) Current Visit: Yes Status: Acute Code(s): G47.33 - OBSTRUCTIVE SLEEP APNEA ( ADULT) (PEDIATRIC) SNOMED Code(s): 87485864 Comment: cpap Status and Disposition: [email or web address]
[2019-02-26] MEDS: Albuterol/Ipratropium NEB.SOL* Albuterol 2.5 MG/Ipratropium 0.5 MG 3 ML INH PRN (15:46)
[2019-02-26] MEDS: guaiFENesin ER TAB 600 MG PO SCH (21:06)
[2019-02-26] MEDS: Acetaminophen TAB* 325 MG PO PRN (21:07)
[2019-02-26] MEDS: Nicotine Patch Removal NOTE FOLLOW UP SCH (21:09)
[2019-02-27] MEDS: Albuterol/Ipratropium NEB.SOL* Albuterol 2.5 MG/Ipratropium 0.5 MG 3 ML INH PRN (05:14)
[2019-02-27] MEDS: Enoxaparin(*) 40 MG/0.4 ML SYR SUBCUT SCH (05:17)
[2019-02-27] MEDS: Famotidine TAB* 20 MG PO SCH ×2 (10:25→20:06)
[2019-02-27] MEDS: guaiFENesin ER TAB 600 MG PO SCH (10:25)
[2019-02-27] MEDS: Atorvastatin* 20 MG TAB PO SCH (10:25)
[2019-02-27] MEDS: FLUoxetine CAP* 20 MG PO SCH (10:25)
[2019-02-27] MEDS: Magnesium Oxide TAB* 400 MG PO SCH (10:25)
[2019-02-27] MEDS: levETIRAcetam TAB* 500 MG PO SCH (10:26)
[2019-02-27] MEDS: Senna TAB 8.6 mg* TAB PO SCH ×2 (10:26→20:05)
[2019-02-27] MEDS: methylPREDNISolone SOD 40 MG* 1 ML VIAL IV SCH (10:28)
[2019-02-27] MEDS: Nicotine PATCH 14 MG/24 HR* PATCH TRANSDERM SCH (10:32)
[2019-02-27 11:18] LABS: ABS Lymphocytes 1.2 10^3/ul (1.0-4.8); ABS Monocytes 0.6 10^3/ul (0-0.8); ABS Neutrophils 3.2 10^3/ul (1.5-7.7); Eosinophil % 0.3 %; Hematocrit 42 % (42-52); Lymphocyte % 24.3 %; Mean Corpuscular HGB Conc 34 g/dL (31-36); Mean Corpuscular Hemoglobin 29 pg (27-31); Mean Corpuscular Volume 85 fL (80-94); Mean Platelet Volume 8.9 fL (7.4-10.4); Nucleated Red Blood Cells % 0.2; Platelet Count 183 10^3/uL (150-450); Red Blood Count 4.89 10^6 /uL (4.18-5.48); Red Cell Distribution Width 15 % (10-15)
[2019-02-27 11:22] LABS: BUN/Creatinine Ratio 25.8 (8-20); Calcium 8.9 mg/dL (8.6-10.3); EGFR African American 101.7 (>60); EGFR Non-African American 84.1 (>60); Potassium 3.4 mmol/L (3.5-5.0)
[2019-02-27] MEDS ORDERED: Benzocaine/Menthol LOZ* 1 LOZENGE PO PRN (13:07)
[2019-02-27] MEDS ORDERED: Potassium Chlor TAB* 20 MEQ TAB.ER PO ONE (13:08)
--- NOTE | 2019-02-27 13:42 | PN ---
Subjective Date of Service: 02/27/19 Interval History: Still sob but wants to go home.Agreed to stay one more day Objective Active Medications: Acetaminophen (Tylenol Tab*) 650 mg PO Q6H PRN PRN Reason: MILD PAIN or TEMP > 100.4 Last Admin: 02/26/19 21:07 Dose: 650 mg Albuterol/Ipratropium (Duoneb (Albuterol 2.5 Mg/Ipratropium 0.5 Mg)) 1 neb INH Q4H PRN PRN Reason: TO IMPROVE CLINICAL CONDITION Last Admin: 02/27/19 05:14 Dose: 1 neb Atorvastatin Calcium (Lipitor*) 20 mg PO DAILY [facility] Last Admin: 02/27/19 10:25 Dose: 20 mg Benzonatate (Tessalon Cap*) 100 mg PO BID PRN PRN Reason: COUGH Last Admin: 02/26/19 21:07 Dose: 100 mg Doxycycline Hyclate (Vibramycin Cap(*)) 100 mg PO BID [facility] Enoxaparin Sodium (Lovenox(*)) 40 mg SUBCUT Q24H [facility] Last Admin: 02/27/19 05:17 Dose: 40 mg Famotidine (Pepcid Tab*) 20 mg PO BID [facility] Last Admin: 02/27/19 10:25 Dose: 20 mg Fluoxetine HCl (Prozac Cap*) 20 mg PO DAILY [facility] Last Admin: 02/27/19 10:25 Dose: 20 mg Levetiracetam (Keppra Tab*) 250 mg PO DAILY [facility] Last Admin: 02/27/19 10:26 Dose: 250 mg Magnesium Oxide (Magox 400 Tab*) 400 mg PO DAILY [facility] Last Admin: 02/27/19 10:25 Dose: 400 mg Methylprednisolone Sodium Succinate (Solu-Medrol 40 Mg) 40 mg IV DAILY [facility] Last Admin: 02/27/19 10:28 Dose: 40 mg Nicotine (Nicotine Patch 14 Mg/24 Hr*) 1 patch TRANSDERM DAILY [facility] Last Admin: 02/27/19 10:32 Dose: 1 patch Ondansetron HCl (Zofran Inj*) 4 mg IV Q6H PRN PRN Reason: NAUSEA Pharmacy Profile Note (Nicotine Patch Removal Note*) 1 note FOLLOW UP 2100 [facility] Last Admin: 02/26/19 21:09 Dose: Not Given Senna (Senokot 8.6 Mg Tab*) 1 tab PO BID [facility] Last Admin: 02/27/19 10:26 Dose: Not Given Throat Lozenges (Chloraseptic Ayaz*) 1 ayaz PO Q6H PRN PRN Reason: SORE THROAT Vital Signs - 8 hr 02/27/19 02/27/19 07:20 08:00 Temperature 97.8 F Pulse Rate 72 Respiratory 16 18 Rate Blood Pressure 117/71 (mmHg) O2 Sat by Pulse 94 Oximetry Oxygen Devices in Use Now: Nasal Cannula Eyes: No Scleral Icterus Ears/Nose/Mouth/Throat: NL Teeth, Lips, Gums Neck: NL Appearance and Movements; NL JVP Respiratory: Symmetrical Chest Expansion and Respiratory Effort Cardiovascular: NL Sounds; No Murmurs; No JVD Abdominal: NL Sounds; No Tenderness; No Distention Skin: No Rash or Ulcers Neurological: Alert and Oriented x 3 Result Diagrams: 02/27/19 10:43 02/27/19 10:43 Microbiology and Other Data: Microbiology 02/23/19 11:30 Gram Stain - Final Sputum Sputum Culture - Final Normal Josie 02/20/19 04:08 Aerobic Blood Culture - Final Blood Venous No Growth Day 5 Anaerobic Blood Culture - Final No Growth Day 5 02/20/19 13:50 Gram Stain - Final Sputum Sputum Culture - Final Normal Josie 02/20/19 05:51 Urine Culture - Final Urine No Growth (<1,000 CFU/mL) 02/20/19 05:14 Nasal Screen MRSA (PCR) - Final Nasal Mrsa Not Detected 02/20/19 05:50 Legionella Urinary Antigen - Final Urine Negative Legionella Antigen Streptococcus pneumoniae Ag Screen - Final Negative S. pneumo Antigen Assess/Plan/Problems-Billing Assessment: - Patient Problems (1) Influenza Current Visit: Yes Status: Acute Code(s): J11.1 - FLU DUE TO UNIDENTIFIED INFLUENZA VIRUS W OTH RESP MANIFEST SNOMED Code(s): 3918715 Comment: completed tamiflu 06/13 (2) COPD exacerbation Current Visit: Yes Status: Acute Code(s): J44.1 - CHRONIC OBSTRUCTIVE PULMONARY DISEASE W (ACUTE) EXACERBATION SNOMED Code(s): 527974245 Comment: iv steroids needs o2 will qualify reduce solumedrol to 40 mg iv qd from bid (3) Acute hypercapnic respiratory failure Current Visit: Yes Status: Acute Code(s): J96.02 - ACUTE RESPIRATORY FAILURE WITH HYPERCAPNIA SNOMED Code(s): 900178451 Comment: sec influenza, pneumonia, copd exacerbation and albertina (4) Pneumonia Current Visit: Yes Status: Acute Code(s): J18.9 - PNEUMONIA, UNSPECIFIED ORGANISM SNOMED Code(s): 750682923 Comment: ceftriaxone, doxycyline 5/ still sob will restart doxy in the setting of post influenza pcn repeat cxr (5) ALBERTINA (obstructive sleep apnea) Current Visit: Yes Status: Acute Code(s): G47.33 - OBSTRUCTIVE SLEEP APNEA ( ADULT) (PEDIATRIC) SNOMED Code(s): 72329734 Comment: cpap (6) Hypokalemia Current Visit: Yes Status: Acute Code(s): E87.6 - HYPOKALEMIA SNOMED Code( s): 31297841 Comment: replace Status and Disposition: pt.ot dc planning for tomorrow
[2019-02-27] MEDS: DOXYcycline CAP(*) 100 MG PO SCH ×2 (15:19→20:06)
[2019-02-27 19:59] LABS: Rapid Strep Molecular Negative (Negative)
[2019-02-27] MEDS: Benzonatate CAP* 100 MG PO PRN (20:06)
[2019-02-27] MEDS: Nicotine Patch Removal NOTE FOLLOW UP SCH (20:09)
[2019-02-28] MEDS: Enoxaparin(*) 40 MG/0.4 ML SYR SUBCUT SCH (05:31)
[2019-02-28 06:09] LABS: ABS Lymphocytes 1.3 10^3/ul (1.0-4.8); ABS Monocytes 0.8 10^3/ul (0-0.8); Eosinophil % 0.4 %; Hematocrit 38 % (42-52); Lymphocyte % 21.6 %; Mean Corpuscular HGB Conc 34 g/dL (31-36); Mean Corpuscular Hemoglobin 29 pg (27-31); Mean Corpuscular Volume 84 fL (80-94); Mean Platelet Volume 8.6 fL (7.4-10.4); Platelet Count 172 10^3/uL (150-450); Red Blood Count 4.54 10^6 /uL (4.18-5.48); Red Cell Distribution Width 15 % (10-15); White Blood Count 6.2 10^3/uL (3.5-10.8)
[2019-02-28 06:24] LABS: BUN/Creatinine Ratio 24.7 (8-20); Calcium 8.6 mg/dL (8.6-10.3); EGFR African American 101.7 (>60); EGFR Non-African American 84.1 (>60)
[2019-02-28 08:48] VITALS: BP 116/71
[2019-02-28] MEDS: methylPREDNISolone SOD 40 MG* 1 ML VIAL IV SCH (08:54)
[2019-02-28] MEDS: Senna TAB 8.6 mg* TAB PO SCH (08:55)
[2019-02-28] MEDS: Atorvastatin* 20 MG TAB PO SCH (08:55)
[2019-02-28] MEDS: DOXYcycline CAP(*) 100 MG PO SCH (08:55)
[2019-02-28] MEDS: Famotidine TAB* 20 MG PO SCH (08:55)
[2019-02-28] MEDS: FLUoxetine CAP* 20 MG PO SCH (08:55)
[2019-02-28] MEDS: Magnesium Oxide TAB* 400 MG PO SCH (08:55)
[2019-02-28] MEDS: Nicotine PATCH 14 MG/24 HR* PATCH TRANSDERM SCH (08:56)
[2019-02-28] MEDS: levETIRAcetam TAB* 500 MG PO SCH (08:56)
[2019-02-28] MEDS: Albuterol/Ipratropium NEB.SOL* Albuterol 2.5 MG/Ipratropium 0.5 MG 3 ML INH PRN (11:06)
--- NOTE | 2019-03-01 01:14 | DS ---
DISCHARGE SUMMARY: DATE OF ADMISSION: 02/20/19 DATE OF DISCHARGE: 02/28/19 PRIMARY DIAGNOSES: 1. Acute hypercapnic respiratory failure. 2. Influenza. 3. Chronic obstructive pulmonary disease exacerbation. 4. Pneumonia. 5. Obstructive sleep apnea. SECONDARY DIAGNOSES: 1. Sarcoidosis. 2. Chronic obstructive pulmonary disease, severe. 3. Obstructive sleep apnea. 4. Hypertension. 5. Posttraumatic stress disorder. 6. Depression. 7. Hyperlipidemia. HOSPITAL COURSE: 1. A 43-year-old male with history of sarcoidosis diagnosed in 2011 with skin biopsy; severe COPD, not on home oxygen, questionably on daily prednisone even though not on med list; active tobacco use; obstructive sleep apnea, noncompliant with CPAP; hypertension; PTSD; depression; hyperlipidemia, came into the emergency room with complaints of shortness of breath, myalgias, runny nose. The patient has had a fever of 101, systolic blood pressure in the 170s, saturating 82%, initially was placed on 4 L but his oxygenation worsened, the patient needed 10 L of nasal cannula. The patient was noted to be influenza A positive. The patient's x-ray showed diffuse interstitial lung disease and hyperinflated lungs. The patient was given doxycycline and Solu-Medrol in the ER and was placed on BiPAP and was also placed on ceftriaxone and doxycycline and was admitted to the ICU for hypoxemic hypercapnic respiratory failure. For the influenza, the patient was treated with Tamiflu and completed the 5 days of treatment. The patient met sepsis criteria. The patient was treated for pneumonia in the post flu setting. The patient was initially on ceftriaxone and doxycycline and later transitioned to doxycycline. For COPD exacerbation, the patient was placed on IV Solu-Medrol, DuoNebs initiated, and for COPD exacerbation and sleep apnea, the patient was placed on BiPAP initially and has continued to use CPAP at night. The patient's respiratory status worsened and the patient was intubated and monitored in the ICU. The patient had a chest x- ray on 02/22/19, which showed bilateral infiltrates. The patient also had a chest CT on 02/23/19, which showed the NG tube and ET tube in place, emphysematous changes, scattered areas of atelectasis in lung ferrari bilaterally. No pleural fluid. No mediastinal or hilar adenopathy was identified. The patient was eventually extubated and transferred to floor. The patient completed 5 days of IV ceftriaxone and doxycycline for pneumonia, was afebrile and transitioned to p.o. doxycycline, which he has to take for 3 more days. The patient completed the Tamiflu for his influenza A. The patient to continue using his CPAP at night, reports that he will be compliant. The patient at the time of discharge has been weaned off IV steroids and will be discharged on a Medrol Dosepak. Unclear if the patient was on long-term steroids at home. Further outpatient steroid therapy per Pulmonary and the patient's primary care physician. The patient already sees Dr. Cabrera as an outpatient and the patient to follow up with Dr. Cabrera in 2 weeks. 2. The patient also had oximetry during hospital stay and the patient does qualify for home oxygen and home oxygen has been arranged for the patient. 3. Vitals and labs noted to be stable at the time of discharge. PHYSICAL EXAMINATION: Temperature 97.8, pulse 85, respiratory rate 18, oxygen saturation 92% on 2 L, blood pressure 116/71. HEENT: NCAT. Heart: S1, S2 present. Regular at the time of exam. Lungs: Clear to auscultation. Abdomen : Soft. Extremities: No edema. Neuro: Alert, oriented x3. MEDICATION LIST: 1. Lidocaine patch. 2. Chantix 1 tab p.o. daily. 3. Omeprazole 40 mg p.o. daily. 4. Albuterol 1 inhalation p.r.n. 5. Prednisone/Medrol Dosepak, take per instruction. 6. Symbicort 2 puffs inhalation b.i.d. 7. Ventolin inhaler 1 to 2 puffs inhalation q.4 p.r.n. 8. Nifedipine 1 tab p.o. daily. 9. Fluoxetine 20 mg p.o. daily. 10. Atorvastatin 1 tab p.o. daily. 11. Oxybutynin 5 mg p.o. at bedtime. 12. Keppra 1 tab p.o. daily. It appears that the patient is taking this for mood disorder, declines a history of seizures. Further discussion per his PCP; he knows him well. 13. Magnesium oxide. 14. Metformin 500 mg 1 tab p.o. b.i.d. 15. Doxycycline 100 p.o. b.i.d. for 3 more days. CONDITION: Stable. DISPOSITION: Home. INSTRUCTIONS: 1. The patient to follow up with his PCP within a week. 2. The patient to follow up with Dr. Cabrera/Pulmonary in 2 weeks. TIME SPENT: Total time spent on discharge equal to 50 minutes. [id number]/[facility] #: [id number] MTDD
== END 2019-02-28 13:55 | disposition home health service (06) | DRG 720 ==
LOC: ED 00:50 → ICU 03:43 → MEDTELE 02-24 23:05
PROVIDERS: ADMIT Internal Medicine; ATTEND Internal Medicine
PROC: 0BH17EZ Insertion of Endotracheal Airway into Trachea, Via Natural or Artificial Opening (ICD-10-PCS; principal; 2019-02-20)
PROC: 5A1945Z Respiratory Ventilation, 24-96 Consecutive Hours (ICD-10-PCS; 2019-02-20)
PROC: 5A09357 Assistance with Respiratory Ventilation, Less than 24 Consecutive Hours, Continuous Positive Airway Pressure (ICD-10-PCS; 2019-02-23)
DX: A41.89 Other specified sepsis (principal); J96.02 Acute respiratory failure with hypercapnia; J96.01 Acute respiratory failure with hypoxia; G93.41 Metabolic encephalopathy; J18.9 Pneumonia, unspecified organism; J44.1 Chronic obstructive pulmonary disease with (acute) exacerbation; J44.0 Chronic obstructive pulmonary disease with (acute) lower respiratory infection; G47.33 Obstructive sleep apnea (adult) (pediatric); D86.9 Sarcoidosis, unspecified; I10 Essential (primary) hypertension; F43.10 Post-traumatic stress disorder, unspecified; F32.9 Major depressive disorder, single episode, unspecified; E78.5 Hyperlipidemia, unspecified; F17.210 Nicotine dependence, cigarettes, uncomplicated; D64.9 Anemia, unspecified; E66.01 Morbid (severe) obesity due to excess calories; R73.03 Prediabetes; E87.6 Hypokalemia; J10.1 Influenza due to other identified influenza virus with other respiratory manifestations; Z99.81 Dependence on supplemental oxygen; Z91.19 Patient's noncompliance with other medical treatment and regimen; Z88.8 Allergy status to other drugs, medicaments and biological substances; Z79.52 Long term (current) use of systemic steroids; Z68.37 Body mass index [BMI] 37.0-37.9, adult; Z79.51 Long term (current) use of inhaled steroids; Z79.84 Long term (current) use of oral hypoglycemic drugs; Z79.899 Other long term (current) drug therapy
CPT/HCPCS: 36415; 36600; 71045; 71046; 71250; 80048; 80053; 81003; 81015; 82803; 83036; 83605; 83735; 83880; 84100; 84484; 85025; 85027; 87040; 87070; 87077; 87086; 87205; 87641; 87651; 87899; 93005; 94002; 94003; 94640; 94660; 96365; 96375; 99285; 99406; A9270-GY; J0330; J0696; J1650; J1940; J2060; J2250; J2270; J2405; J2704; J2920; J2930; J3475